=== PATIENT | male | born 1955 | race Caucasian/White ===

== ENCOUNTER 2019-02-03 20:32 | Emergency (ER) | payer OTHER ==
--- NOTE | 2019-02-03 21:07 | RAD ---
XR Chest 1 View Portable HISTORY: Chest pain COMPARISON: 08/09/2018 FINDINGS: Changes of median sternotomy, COPD and left-sided pacemaker device are again seen. Chronic parenchymal changes are again noted. The heart size is normal. The lungs are well expanded without focal areas of consolidation, pneumothorax or pleural effusions. IMPRESSION: No radiographic evidence of acute cardiopulmonary process.
[2019-02-03 21:13] LABS: #Eosinphils 0.2 thou/uL (0.0-0.7); #Lymphocytes 1.9 thou/uL (1.20-3.40); #Monocytes 0.7 thou/uL (0.11-0.59); #Neutrophils 10.8 thou/uL (1.40-6.50); %Basophils 0.3 % (0.0-1.0); %Eosinophils 1.1 % (0.0-10.0); %Lymphocytes 14.1 % (21.0-51.0); %Monocytes 5.3 % (0.0-10.0); %Neutrophils 79.1 % (42.0-75.0); Hemoglobin 12.8 g/dL (14.0-18.0); Mean Corpuscular HGB CONC 33.9 g/dL (32.0-36.0); Mean Corpuscular Hemoglobin 32.5 pg (27.0-31.0); Mean Platelet Volume 7.5 fL (7.4-10.4); Platelet Count 300 thou/uL (130-400); RBC Distribution Width 12.3 % (11.5-14.5); Red Blood Cell (RBC) Count 3.95 mill/uL (4.70-6.10); White Blood Cell (WBC) Count 13.6 thou/uL (4.8-10.8)
[2019-02-03 21:37] LABS: ALT (SGPT) 8 U/L (8-55); AST (SGOT) 12 U/L (5-34); Albumin 3.1 g/dL (3.4-4.8); Alkaline Phosphatase 88 U/L (40-110); Anion Gap 10 mmol/L (10-20); BUN (Urea Nitrogen) 6 mg/dL (8.4-25.7); Bilirubin, Total 0.3 mg/dL (0.2-1.2); Calc. Creatinine Clearance 0 mL/min (70-130); Calcium 7.7 mg/dL (7.8-10.44); Carbon Dioxide 23 mmol/L (23-31); Chloride 102 mmol/L (98-107); Estimated GFR-MDRD Greater than 90; Globulin 2.7 g/dL (2.4-3.5); Glucose 97 mg/dL (80-115); Potassium 4.1 mmol/L (3.5-5.1); Protein, Total 5.8 g/dL (5.8-8.1); Sodium 131 mmol/L (136-145)
[2019-02-04 00:40] LABS: Troponin I Less than 0.010 ng/mL (< 0.028)
== END 2019-02-04 06:32 | disposition short-term general hospital (02) ==
LOC: ERS 20:32
DX: R07.2 Precordial pain (principal); J43.9 Emphysema, unspecified; I11.0 Hypertensive heart disease with heart failure; I50.9 Heart failure, unspecified; I25.10 Atherosclerotic heart disease of native coronary artery without angina pectoris; F17.210 Nicotine dependence, cigarettes, uncomplicated; Z85.51 Personal history of malignant neoplasm of bladder; Z95.0 Presence of cardiac pacemaker; Z79.899 Other long term (current) drug therapy; Z79.82 Long term (current) use of aspirin
CPT/HCPCS: 36415; 71045; 80053; 84484; 85025; 93005

== ENCOUNTER 2020-01-24 19:12 | Inpatient (IN) | payer OTHER ==
[2020-01-24 20:00] LABS: #Basophils 0.1 thou/uL (0.0-0.2); #Eosinphils 0.1 thou/uL (0.0-0.7); #Lymphocytes 1.2 thou/uL (1.20-3.40); #Monocytes 0.9 thou/uL (0.11-0.59); #Neutrophils 7.9 thou/uL (1.40-6.50); %Basophils 0.6 % (0.0-1.0); %Eosinophils 1.2 % (0.0-10.0); %Lymphocytes 11.8 % (21.0-51.0); %Neutrophils 77.4 % (42.0-75.0); Hemoglobin 12.4 g/dL (14.0-18.0); Mean Corpuscular HGB CONC 31.7 g/dL (32.0-36.0); Mean Corpuscular Hemoglobin 26.7 pg (27.0-31.0); Mean Corpuscular Volume 84.2 fL (78.0-98.0); Mean Platelet Volume 7.9 fL (7.4-10.4); Platelet Count 272 thou/uL (130-400); RBC Distribution Width 16.8 % (11.5-14.5); Red Blood Cell (RBC) Count 4.67 mill/uL (4.70-6.10); White Blood Cell (WBC) Count 10.2 thou/uL (4.8-10.8)
[2020-01-24 20:21] LABS: ALT (SGPT) 15 U/L (8-55); AST (SGOT) 15 U/L (5-34); Albumin 3.3 g/dL (3.4-4.8); Alkaline Phosphatase 105 U/L (40-110); Anion Gap 11 mmol/L (10-20); BUN (Urea Nitrogen) 8 mg/dL (8.4-25.7); Bilirubin, Total 0.2 mg/dL (0.2-1.2); Calc. Creatinine Clearance 0 mL/min (70-130); Calcium 8.3 mg/dL (7.8-10.44); Carbon Dioxide 26 mmol/L (23-31); Chloride 100 mmol/L (98-107); Estimated GFR-MDRD Greater than 90; Globulin 3.5 g/dL (2.4-3.5); Glucose 86 mg/dL (80-115); Potassium 4.1 mmol/L (3.5-5.1); Protein, Total 6.8 g/dL (5.8-8.1); Sodium 133 mmol/L (136-145)
[2020-01-24] MEDS ORDERED: Acetaminophen 325 MG TAB PO PRN (20:33)
[2020-01-24] MEDS ORDERED: Nitroglycerin 0.4 MG TAB (25 Tab Bottle) SL PRN (20:33)
[2020-01-24 20:43] LABS: CKMB 4.6 ng/mL (0-6.6)
--- NOTE | 2020-01-24 21:02 | PDOC.BPN ---
- Brief Progress Note Encounter Date: 01/24/20 [id number] HP
[2020-01-24] MEDS ORDERED: Enoxaparin Sodium 60 MG/0.6 ML SYRINGE ONE (21:14)
[2020-01-24] MEDS ORDERED: Aspirin Chewable 81 MG TAB ONE (21:14)
--- NOTE | 2020-01-24 21:25 | RAD ---
CHEST ONE VIEW: Comparison: 09-29-2019 History: Pain, irregular heart beat FINDINGS: Stable sternotomy wires and left sided transvenous pacemaker. Stable cardiac silhouette. There is evidence of hyperinflation of the lung parenchyma with extensive scarring in the right upper lobe. This results in retraction of the major fissure and compensatory hyperinflation of the right m iddle lobe and lower lobe. There are stable parenchymal changes in the left lung apex and left upper lobe. There is a stable mass like opacity in the left midlung. Further evaluation with chest CT is re commended. IMPRESSION: Extensive emphysematous change and scarring as detailed above. Further evaluation with chest CT is re commended. POS: PPP
[2020-01-24 21:35] LABS: Troponin I 0.312 ng/mL (< 0.028)
[2020-01-24 23:54] LABS: Troponin I 0.873 ng/mL (< 0.028)
[2020-01-25] MEDS: Metoprolol Tartrate 25 MG TAB PO SCH ×2 (00:55→11:33)
[2020-01-25] MEDS ORDERED: Famotidine 20 MG TAB ONE ×2 (01:46→11:10)
[2020-01-25] MEDS: Famotidine 20 MG TAB PO SCH ×3 (01:47→20:42)
[2020-01-25] MEDS ORDERED: Diltiazem 125 MG/25 ML ONE (02:01)
[2020-01-25] MEDS ORDERED: Sodium Chloride 0.9% 250 ML IV SCH (02:15)
[2020-01-25 05:06] LABS: Cardiac Risk 3.2 (Less than 4.5)
--- NOTE | 2020-01-25 05:39 | HP ---
CHIEF COMPLAINT: Chest pain and palpitations. HISTORY OF PRESENT ILLNESS: Mr. Caro is a 64-year-old male with past medical history of coronary artery disease, coronary artery bypass graft surgery, cardiac stents, COPD, cigarette smoker, atrial fibrillation, cardiac pacemaker, among others, presents to the emergency room with chest pain and palpitations that started around 5:30 p.m. The patient measured his blood pressure and his heart rate. His heart rate was 175. He took one nitroglycerin and blood pressure went down, but heart rate stayed the same. The chest pain did not resolve with nitroglycerin, so he called EMS. The EMS gave the patient 15 mg of IV diltiazem and 1.5 L, which resolved his chest pain and brought his heart rate down. The patient has a history of atrial fibrillation since 2017. He has a cardiac pacemaker in 2017. He denies being on anticoagulants. He takes Plavix and aspirin. Workup in the emergency room, the patient's troponin 0.116. In the emergency room, the patient was given aspirin and one dose of Lovenox. The patient is being admitted to hospital for further management. PAST MEDICAL HISTORY: 1. COPD/emphysema. 2. Coronary artery disease. 3. Congestive heart failure. 4. Bladder cancer. PAST PSYCHIATRIC HISTORY: Anxiety/depression. PAST SURGICAL HISTORY: 1. Cardiac pacemaker. 2. Coronary artery bypass graft surgery. 3. Cardiac stents. SOCIAL HISTORY: The patient denies alcohol drinking. He smokes half pack a day. FAMILY HISTORY: Reviewed and noncontributory. HOME MEDICATIONS: Please see home medication reconciliation form for updated medications. ALLERGIES: ALLERGIC TO CODEINE. REVIEW OF SYSTEMS: Review of 14 systems is negative except what is mentioned in history of present illness. PHYSICAL EXAMINATION: GENERAL: The patient is awake, alert, in moderate distress. VITAL SIGNS: Blood pressure is 100/74, pulse is 91, respiratory rate is 24, oxygen saturation is 100% on room air, and temperature 97.9. HEAD AND NECK: Normocephalic, atraumatic. NECK: Supple. CHEST: Fair bilateral air entry. HEART: Distant heart sounds. ABDOMEN: Soft, nontender. Bowel sounds present. NEUROLOGIC: Awake, alert. No focal deficits. PSYCH: Unable to assess. EXTREMITIES: No clubbing, no cyanosis. GENITOURINARY: No suprapubic tenderness. No flank tenderness. LABORATORY DATA: Sodium 133, BUN is 8, creatinine 0.5, potassium 4.1. WBC 10.2, hemoglobin 12.4, and platelets 272. Chest x-ray is pending. ASSESSMENT: 1. Atrial fibrillation with rapid ventricular response. 2. Chest pain with detectable troponin. 3. Coronary artery disease. 4. Chronic obstructive pulmonary disease/emphysema. 5. History of cardiac stents. 6. History of coronary artery bypass graft surgery. 7. Cigarette smoker. PLAN: 1. Admit. 2. Telemetry monitoring. 3. Aspirin. 4. The patient was given Lovenox in the ED, will continue, to be reassessed in the a.m. Consult Cardiology in the a.m. for evaluation and further recommendations. 5. 2D echo. 6. Reconcile home medications. 7. DVT prophylaxis as appropriate. 8. Expected length of stay, at least 1 midnight if the patient is stable. Job ID: [id number]
[2020-01-25 08:57] LABS: SARS-CoV-2 MS2 Positive; SARS-CoV-2 N Gene Negative; SARS-CoV-2 S Gene Negative; SARS-CoV-2 by NAA Not Detected (NotDetected); SARS-CoV-2 orf1ab Negative
[2020-01-25] MEDS ORDERED: Enoxaparin Sodium 60 MG/0.6 ML SYRINGE SC SCH (09:00)
--- NOTE | 2020-01-25 09:11 | PDOC.HOSPP ---
- Subjective Encounter Date: 01/25/20 Encounter Time: 11:00 Subjective: Patient without further chest pain, SOB, or palpitations. - Objective Vital Signs & Weight: Vital Signs (12 hours) Temp Pulse Resp BP Pulse Ox 01/25/20 00:00 98.6 F 79 23 H 93/64 100 01/24/20 22:30 99 01/24/20 22:26 98.3 F 99 23 H 103/70 99 Weight Weight 118 lb 3.39 oz I&O: 01/24/20 01/25/20 01/26/20 06:59 06:59 06:59 Output Total 370 Balance -370 Result Diagrams: 01/24/20 19:53 01/24/20 19:53 Hospitalist ROS - Review of Systems Constitutional: denies: fever, chills Respiratory: denies: cough, shortness of breath Cardiovascular: denies: chest pain, palpitations Gastrointestinal: denies: nausea, vomiting, abdominal pain - Medication Medications: Active Medications Generic Name Dose Route Start Last Admin Trade Name Freq PRN Reason Stop Dose Admin Famotidine 20 mg 01/24/20 21:00 01/25/20 01:47 Famotidine 20 Mg Tab PO 20 mg BID NEELIMA Administration Metoprolol Tartrate 25 mg 01/24/20 21:00 01/25/20 00:55 Metoprolol Tartrate 25 Mg Tab PO Not Given BID NEELIMA - Exam General Appearance: NAD, awake alert ENT: moist mucosa Heart: no murmur, no gallops, no rubs, irregular Heart - other findings: no tachycardia Respiratory: CTAB, no wheezes, no rales, no ronchi Gastrointestinal: soft, non-tender, non-distended, normal bowel sounds Psychiatric: normal affect, normal behavior, A&O x 3 Hosp A/P (1) Atrial fibrillation with rapid ventricular response Code(s): I48.91 - UNSPECIFIED ATRIAL FIBRILLATION Status: Acute (2) NSTEMI (non-ST elevated myocardial infarction) Code(s): I21.4 - NON-ST ELEVATION (NSTEMI) MYOCARDIAL INFARCTION Status: Acute (3) CAD (coronary artery disease) Code(s): I25.10 - ATHSCL HEART DISEASE OF [place] CORONARY ARTERY W/O ANG PCTRS Status: Chronic (4) COPD (chronic obstructive pulmonary disease) Status: Chronic (5) Tobacco abuse Code(s): Z72.0 - TOBACCO USE Status: Chronic - Plan Troponin climbed overnight. Patient on Lovenox and Aspirin. Cardiology consulted. Metoprolol for rate control. Resume home medications including Plavix, Carvedilol.
[2020-01-25] MEDS ORDERED: Enoxaparin Sodium 100 MG/ML SYRINGE ONE (11:10)
[2020-01-25] MEDS ORDERED: Aspirin 325 MG TAB ONE (11:10)
[2020-01-25] MEDS ORDERED: Metoprolol Tartrate 25 MG TAB ONE (11:10)
[2020-01-25] MEDS: Aspirin 325 mg Enteric Coated Tablet PO SCH (11:33)
[2020-01-25] MEDS ORDERED: Communication Order-Pharmacy FS SCH (16:45)
[2020-01-25] MEDS: Carvedilol 6.25 MG TAB PO SCH (17:55)
[2020-01-25] MEDS: Atorvastatin Calcium 40 MG TAB PO SCH (20:43)
[2020-01-25] MEDS: Amiodarone 200 MG TAB PO SCH (20:43)
[2020-01-25] MEDS: traZODone HCl 50 MG TAB PO SCH (20:43)
--- NOTE | 2020-01-25 22:44 | CON ---
DATE OF CONSULTATION: HISTORY: Jc Caro is a 64-year-old white male, who underwent CABG x3 in 2006. He presented here in June 2016 with an inferoposterior STEMI. He previously had stents placed in the right coronary artery graft. He was taken emergently to the cardiac cath lab manager by Dr. Morrell. The PERSON to the LAD was patent, there was occluded graft to the obtuse marginal. The right coronary artery graft also occluded with fresh thrombus. The thrombus burden apparently was so large that the area could not be revascularized. His troponin went to 7.442. He did have problems with complete heart block. Initial ejection fraction was 30% to 35%. He was taken for a pacemaker placement with initial intent of placing a biventricular pacemaker and wearing a LifeVest if his ejection fraction continued to remain poor after 40 days to upgrade to a defibrillator. However, there was difficulty in placing the left ventricular lead and only a dual-chamber pacemaker was placed. He never returned to Dr. Morrell for followup since he gets his care [facility]. He is somewhat of a poor historian, thinks he may have had an echo at some point in time. He has never been told that he needed to upgrade to a defibrillator. He states he has not had any further evaluation performed on his heart since 2017. He apparently has had some episodes of atrial fibrillation, however, states he was hospitalized here with it. He was seen in the emergency room in August 2018 and in January 2019, was transferred to the [facility] from the ER both times; however, I cannot see any mention of atrial fibrillation. Yesterday, at approximately 5:30 p.m., he had onset of substernal chest pressure associated with shortness of breath. He took nitroglycerin and this did not relieve the discomfort. He states that when he took his blood pressure, it was 120/90; however, his heart rate was in the 170s. He called EMS and he was transferred here. EMS gave him Cardizem 15 mg, which brought down his heart rate and by the time he arrived here, his chest pressure resolved, total duration of pain approximately 1-1/2 hours. He has never been on anticoagulants in the past. He is on aspirin, Plavix, and stated that he has bladder cancer and had a biopsy performed and then resumed Plavix 3 weeks later, but had urinary obstruction due to development of a large clot in his bladder. He states he just resumed the Plavix approximately 1 week ago. PAST MEDICAL HISTORY: Coronary artery disease, history of myocardial infarction, hypertension, hypercholesterolemia. MEDICATIONS: 1. Lisinopril 5 daily. 2. Clopidogrel 75 mg daily. 3. Aspirin 81 daily. 4. Atorvastatin 80 daily. 5. Trazodone 100 mg daily. 6. Carvedilol 12.5 b.i.d. 7. Sertraline 100 daily. ALLERGIES: CODEINE WHICH CAUSES A RASH. SOCIAL HISTORY: He smokes one-half pack per day down from two packs per day. He does not drink. REVIEW OF SYSTEMS: A 10-point review of systems is otherwise unremarkable. PHYSICAL EXAMINATION: VITAL SIGNS: Blood pressure 110/68, pulse of 70. HEENT: PERRL. NECK: Supple. CHEST: Clear. CARDIAC: S1 and S2 normal without any S3, S4, or murmurs. Carotid upstrokes normal without bruits. ABDOMEN: Normal bowel sounds without tenderness or organomegaly. EXTREMITIES: Reveal no clubbing, cyanosis, or edema. NEUROLOGIC: Grossly intact. SKIN: Warm and dry. LABORATORY DATA: EKG reveals normal sinus rhythm when he arrived here with anterior infarction. He then at approximately 0156 went into atrial fibrillation with rate as low as 50s to 160. He started on a Cardizem drip and converted to sinus rhythm. The drip has since been discontinued. He continues to maintain sinus rhythm. Troponin I 0.873. Cholesterol 121, triglycerides 60, HDL 38, LDL 71. Sodium 133, potassium 4.1, chloride 100, carbon dioxide 26, BUN 8, creatinine 0.59. Urine drug screen is positive for benzodiazepine and cannabinoids. COVID negative. IMPRESSION: 1. [id number] myocardial infarction. When he arrived here, he had gone back to sinus rhythm and has had one other recurrence. He apparently has had atrial fibrillation in the past. He is not on any specific suppressive agent for that. He also is not on anticoagulation, but has had hematuria from his bladder cancer. 2. Paroxysmal atrial fibrillation. 3. Status post coronary artery bypass grafting x3 with both the obtuse marginal and the right coronary graft being occluded. 4. Left ventricular dysfunction in the past, however, not certain of his ejection fraction at the present time. 5. Hypertension. 6. Hypercholesterolemia with LDL of 71. 7. Smoker. 8. Bladder cancer with development of a clot with urinary obstruction and he resumed Plavix. 9. S/P dual chamber pacemaker, unable to place LV lead. RECOMMENDATIONS: The situation was discussed with the patient. Echocardiogram will be performed to reassess left ventricular function. I will start him on p.o. amiodarone loading. Also, consideration should be given to oral anticoagulation; however, he has had problems with bleeding with his bladder cancer. It was recommended he undergo cardiac catheterization. Risks of this were discussed including , myocardial infarction, dye reaction, vascular injury, CVA, transfusion, limb loss, renal loss, etc. Also risks of intervention with PTCA and stent placement were discussed including , myocardial infarction, emergent CABG, restenosis, stent thrombosis, vessel perforation, etc. With his history of bladder cancer and bleeding, I would recommend placing a bare-metal stent. Job ID: [id number] [email or web address]
[2020-01-26] MEDS: Carvedilol 6.25 MG TAB PO SCH (05:53)
[2020-01-26] MEDS: Amiodarone 200 MG TAB PO SCH ×2 (05:54→21:40)
[2020-01-26] MEDS ORDERED: Sodium Chloride 0.9% 1,000 ML IV SCH ×2 (06:00→08:16)
[2020-01-26] MEDS ORDERED: Heparin 10,000 UNITS/ 10 ML VIAL ONE (06:38)
[2020-01-26] MEDS ORDERED: Midazolam HCl 2 mg/2 ml Vial ONE (07:10)
[2020-01-26] MEDS ORDERED: Fentanyl 100 MCG/2 ML VIAL ONE (07:10)
[2020-01-26] MEDS ORDERED: Protamine Sulfate 50 MG/5 ML VIAL ONE (07:38)
--- NOTE | 2020-01-26 08:11 | PDOC.HOSPP ---
- Subjective Encounter Date: 01/26/20 Encounter Time: 09:30 Subjective: Patient back from his cath. No stent placed. Patient denies complaints. - Objective Vital Signs & Weight: Vital Signs (12 hours) Temp Pulse Resp BP BP Pulse Ox 01/26/20 05:53 106/60 01/26/20 04:45 98.1 F 77 16 106/60 97 Weight Weight 114 lb 8 oz I&O: 01/25/20 01/26/20 01/27/20 06:59 06:59 06:59 Intake Total 600 Output Total 370 Balance -370 600 Result Diagrams: 01/24/20 19:53 01/24/20 19:53 Hospitalist ROS - Review of Systems Constitutional: denies: fever, chills Respiratory: denies: cough, shortness of breath Cardiovascular: denies: chest pain, palpitations Gastrointestinal: denies: nausea, vomiting, abdominal pain - Medication Medications: Active Medications Generic Name Dose Route Start Last Admin Trade Name Freq PRN Reason Stop Dose Admin Amiodarone HCl 400 mg 01/25/20 21:00 01/26/20 05:54 Amiodarone 200 Mg Tab PO 400 mg BID NEELIMA Administration Aspirin 325 mg 01/25/20 09:00 01/25/20 11:33 Aspirin 325 Mg Enteric Coated Tablet PO 325 mg DAILY NEELIMA Administration Atorvastatin Calcium 80 mg 01/25/20 21:00 01/25/20 20:43 Atorvastatin Calcium 40 Mg Tab PO 80 mg HS NEELIMA Administration Carvedilol 12.5 mg 01/25/20 17:00 01/26/20 05:53 Carvedilol 6.25 Mg Tab PO 12.5 mg BID-WM NEELIMA Administration Famotidine 20 mg 01/24/20 21:00 01/25/20 20:42 Famotidine 20 Mg Tab PO 20 mg BID NEELIMA Administration Sodium Chloride 1,000 mls @ 100 mls/hr 01/26/20 06:00 01/26/20 05:54 Normal Saline 0.9% IV 1,000 mls .Q10H NEELIMA Administration Trazodone HCl 50 mg 01/25/20 21:00 01/25/20 20:43 Trazodone Hcl 50 Mg Tab PO 50 mg HS NEELIMA Administration - Exam General Appearance: NAD, awake alert ENT: moist mucosa Heart: RRR, no murmur, no gallops, no rubs Respiratory: CTAB, no wheezes, no rales, no ronchi Gastrointestinal: soft, non-tender, non-distended, normal bowel sounds Psychiatric: normal affect, normal behavior, A&O x 3 Hosp A/P (1) Atrial fibrillation with rapid ventricular response Code(s): I48.91 - UNSPECIFIED ATRIAL FIBRILLATION Status: Acute (2) NSTEMI (non-ST elevated myocardial infarction) Code(s): I21.4 - NON-ST ELEVATION (NSTEMI) MYOCARDIAL INFARCTION Status: Acute (3) CAD (coronary artery disease) Code(s): I25.10 - ATHSCL HEART DISEASE OF [place] CORONARY ARTERY W/O ANG PCTRS Status: Chronic (4) COPD (chronic obstructive pulmonary disease) Status: Chronic (5) Tobacco abuse Code(s): Z72.0 - TOBACCO USE Status: Chronic - Plan Patient on Lovenox and Aspirin. Cardiology consulted, Dr. Renee took to cath this AM with no stents placed. Metoprolol for rate control. Starting Amiodarone load orally. Resume home medications including Plavix, Carvedilol. Dr. Garcia considering changing out pacer for biventricular/defibrillator per patient.
[2020-01-26] MEDS ORDERED: Nitroglycerin 0.4 MG TAB (25 Tab Bottle) SL PRN (08:15)
[2020-01-26] MEDS ORDERED: Sodium Chloride 0.9% 200 ML IV PRN (08:15)
[2020-01-26] MEDS ORDERED: Iopamidol 370 76% 50 ML VIAL FS ONE (08:49)
[2020-01-26] MEDS ORDERED: Iopamidol 370 76% 100 ML VIAL ONE (08:49)
[2020-01-26] MEDS: Furosemide 20 MG TAB PO SCH (10:25)
[2020-01-26] MEDS: Famotidine 20 MG TAB PO SCH ×2 (10:25→21:40)
[2020-01-26] MEDS: Clopidogrel Bisulfate 75 MG TAB PO SCH (14:17)
[2020-01-26] MEDS: Aspirin 325 mg Enteric Coated Tablet PO SCH (14:17)
[2020-01-26] MEDS ORDERED: Carvedilol 6.25 MG TAB PO SCH (17:00)
[2020-01-26] MEDS: traZODone HCl 50 MG TAB PO SCH (21:40)
[2020-01-26] MEDS: Atorvastatin Calcium 40 MG TAB PO SCH (21:40)
[2020-01-27 05:21] LABS: Anion Gap 12 mmol/L (10-20); BUN (Urea Nitrogen) 7 mg/dL (8.4-25.7); Calc. Creatinine Clearance 92 mL/min (70-130); Calcium 8.4 mg/dL (7.8-10.44); Carbon Dioxide 25 mmol/L (23-31); Chloride 101 mmol/L (98-107); Estimated GFR-MDRD Greater than 90; Glucose 87 mg/dL (80-115); Potassium 3.6 mmol/L (3.5-5.1); Sodium 134 mmol/L (136-145)
--- NOTE | 2020-01-27 07:20 | CON ---
DATE OF CONSULTATION: 01/26/2020 HISTORY OF PRESENT ILLNESS: I am seeing Mr. Caro at our [facility] telemetry floor for an Electrophysiology consultation. His problems are; 1. Paroxysmal atrial fibrillation with rapid ventricular rate, currently on amiodarone taper. 2. Chronic systolic congestive heart failure with ischemic cardiomyopathy: a. History of coronary artery bypass grafting surgery in 2006. b. Inferoposterior ST-elevation OK in June 2016 with subsequent RCA stenting. c. Initial LVEF 30% to 35% [facility]. d. Now left heart catheterization from 01/26/2020 shows three-vessel [place] coronary artery disease with 1 out of 3 bypass grafts patent (PERSON to LAD). The LVEF is 10% to 15%. 3. History of AV block prompting a dual-chamber pacemaker implant post OK with a [employer] device. 4. Hypertension. ALLERGIES: CODEINE CAUSING RASH. MEDICATIONS: At home included; 1. Aspirin. 2. Lipitor. 3. Coreg. 4. Nitrostat. SUBJECTIVE: Mr. Caro is admitted with symptoms of severe palpitation and dyspnea. He was noted to be in atrial fibrillation and eventually underwent left heart catheterization by Dr. Renee. Coronary artery status as above. No intervention was necessary. He does not pass out. No stroke-like symptoms noted. He does have dyspnea with moderate exertion like walking 25 feet. He has no fever, chills, or cough. He did have some bladder issues, which is now improving. He has chronic COPD, possibly related to prior smoking, but currently is not worse than usual. REVIEW OF SYSTEMS: Rest of 12-point of system otherwise unremarkable. PAST HISTORY: As above, he has history of COPD with emphysema, coronary artery disease, congestive heart failure due to ischemic cardiomyopathy, prior myocardial infarction, bradycardia, dual-chamber pacemaker implantation by me in 2016. Also has history of bladder cancer status post chemotherapy in April and May, still under surveillance by Urology. He has prior history of stent placements and coronary artery bypass grafting surgery as above. SOCIAL HISTORY: Denies EtOH abuse. Smokes half a pack a day. FAMILY HISTORY: Not contributory. OBJECTIVE DATA: VITAL SIGNS: Blood pressure is 106/60, heart rate 77, respiratory rate is 16, temperature 98.1 degrees Fahrenheit. GENERAL: Reveals alert and oriented man, in no apparent distress. NECK: Supple. Jugular veins not distended. CHEST: Coarse without crackles. CARDIAC: Heart sounds are regular to rate and rhythm. No murmur or gallop. ABDOMEN: Benign. Bowel sounds positive. EXTREMITIES: Lower extremities without edema, clubbing, or cyanosis. Pulses are adequate. NEUROLOGIC: The patient is nonfocal. MUSCULOSKELETAL: Without joint swelling or deformities. SKIN: Without rash. Left precordial pacemaker insertion site is well healed. DATABASE: Reviewed EKGs, initially revealed sinus rhythm with frequent PACs on January 24, 2020. Subsequent EKGs also showed the same atrial fibrillation documented on telemetry strips with rapid rates with sabianism of sinus rhythm shortly after. I reviewed the pacemaker interrogation, reveals a [employer] dual-chamber pacemaker, battery longevity at 9.8 years. Lead parameters are adequate. Sensing 4.4 and 7.5 mV respectively. The patient is currently 5% ventricularly paced only. 59 mode switch episodes with overall low atrial fibrillation burden are seen. The episodes up to 124 minutes noted on January 23. Prior to that, longest episode was 41 minutes on January 07. Ventricular rates are rapid during atrial fibrillation in the 150s to 160s. LABORATORY DATA: Reviewed. White cell count 10.2, hemoglobin 12.4, platelet count is 272. Sodium 133, potassium 4.1, BUN is 8, creatinine 0.59. Troponin-I 0.116, 0.312, and 0.873 consecutively. Chest x-ray from 01/24/2020, shows emphysema, masslike opacity in the left mid lung, dual-chamber pacemaker in place. ASSESSMENT AND PLAN: 1. Mr. Caro is a 64-year-old man with prior history of congestive heart failure and ischemic cardiomyopathy, severely reduced LVEF on echo in June 2016 post OK in the 30% to 35% range. Now re-presented with paroxysmal atrial fibrillation with rapid rates with associated chest tightness sensation and dyspnea. The left heart catheterization demonstrates advanced but stable coronary artery disease, on medical management. Dr. Renee had initiated the amiodarone for suppression of atrial arrhythmias, were likely main cause of his symptoms. On the other hand, he has severely reduced LVEF, which seems to be persisting over the years, gives him risk for future ventricular arrhythmias. Consideration for upgrading him for ICD could be made. I discussed the rationale, risks, benefits of prophylactic ICD implant. He understands the concept of sudden cardiac prevention with the ICD device. The risks and benefits of procedure discussed including chance of pneumothorax, tamponade, lead dislodgement, infections, device malfunctions, recalls. We also discussed the likely superfluous RV pacing lead, which left in place. At this point, he does not prefer extraction. 2. In the past, consideration was given for Bi-V pacing. Post OK his AV block persisted, but mostly resolved, he only has 5% RV pacing, likely does not warrant a Bi-V pacemaker at this time. 3. Paroxysmal atrial fibrillation on amiodarone. Hopefully, we can reduce medication to lower levels, hence his baseline pulmonary disease. 4. CHADS-VASc score of 4 with cardiovascular disease, congestive heart failure, hypertension, his age, but very short episode of atrial fibrillation. Has recent history of bladder cancer, anticoagulation is somewhat difficult proposition. Should longer atrial fibrillation episodes be seen, consideration for starting anticoagulants should be given. On the other hand, Watchman device placement could be also a consideration once he tolerates anticoagulant, though he could be considered for pulmonary venous isolation procedure as well. 5. We will make arrangements for the dual-chamber ICD upgrade. Thank you again for letting me participate in the care of this patient. Job ID: [id number] [id number]
[2020-01-27] MEDS ORDERED: Nitroglycerin 0.4 MG TAB (25 Tab Bottle) SL PRN (07:40)
[2020-01-27] MEDS ORDERED: Enoxaparin Sodium 60 MG/0.6 ML SYRINGE SC SCH (09:00)
[2020-01-27] MEDS ORDERED: Enoxaparin Sodium 80 MG/0.8 ML SYRINGE SC SCH (09:00)
[2020-01-27] MEDS: Furosemide 20 MG TAB PO SCH (09:05)
[2020-01-27] MEDS: Clopidogrel Bisulfate 75 MG TAB PO SCH ×2 (09:05→11:52)
[2020-01-27] MEDS: Famotidine 20 MG TAB PO SCH ×2 (09:06→22:39)
[2020-01-27] MEDS: Amiodarone 200 MG TAB PO SCH ×2 (09:07→22:25)
[2020-01-27] MEDS: Carvedilol 3.125 MG TAB PO SCH ×2 (09:13→22:25)
[2020-01-27] MEDS: Aspirin Chewable 81 MG TAB PO SCH (09:15)
[2020-01-27] MEDS ORDERED: Iopamidol 370 76% 50 ML VIAL FS ONE (14:29)
[2020-01-27] MEDS ORDERED: CEFAZOLIN 1 GM VIAL ONE (15:42)
[2020-01-27] MEDS ORDERED: Gentamicin 80 MG/2 ML VIAL ONE (15:42)
[2020-01-27] MEDS ORDERED: Ondansetron PF 4 MG/2 ML Vial ONE (15:56)
[2020-01-27] MEDS ORDERED: Lidocaine 1% (PF) 30 ML VIAL ONE (16:07)
[2020-01-27] MEDS ORDERED: Fentanyl 100 MCG/2 ML VIAL ONE ×2 (16:27→16:54)
[2020-01-27] MEDS ORDERED: Midazolam HCl 2 mg/2 ml Vial ONE ×2 (16:27→16:54)
--- NOTE | 2020-01-27 16:40 | PDOC.HOSPP ---
- Subjective Encounter Date: 01/27/20 Encounter Time: 10:00 Subjective: Up in bed no complaints. Waiting to go for his AICD placement. - Objective Vital Signs & Weight: Vital Signs (12 hours) Temp Pulse Pulse Pulse Resp BP BP 01/27/20 13:31 01/27/20 13:14 68 73 90/59 L 99/64 01/27/20 12:00 98.0 F 72 17 01/27/20 08:00 98.1 F 74 18 BP Pulse Ox 01/27/20 13:31 98 01/27/20 13:14 01/27/20 12:00 102/58 L 97 01/27/20 08:00 95/52 L 98 Weight Admit Weight 118 lb 3.39 oz Weight 116 lb 4.8 oz I&O: 01/26/20 01/27/20 01/28/20 06:59 06:59 06:59 Intake Total 600 480 Output Total 250 Balance 600 230 Result Diagrams: 01/24/20 19:53 01/27/20 04:41 Hospitalist ROS - Review of Systems Cardiovascular: denies: chest pain, palpitations, orthopnea, paroxysmal noc. dyspnea, edema, light headedness, other Gastrointestinal: denies: nausea, vomiting, abdominal pain, diarrhea, constipation, melena, hematochezia, other Genitourinary: denies: dysuria, frequency, incontinence, hematuria, retention, other - Medication Medications: Active Medications Generic Name Dose Route Start Last Admin Trade Name Freq PRN Reason Stop Dose Admin Amiodarone HCl 400 mg 01/25/20 21:00 01/27/20 09:07 Amiodarone 200 Mg Tab PO 400 mg BID NEELIMA Administration Aspirin 81 mg 01/27/20 09:00 01/27/20 09:15 Aspirin Chewable 81 Mg Tab PO 81 mg DAILY NEELIMA Administration Carvedilol 3.125 mg 01/27/20 09:00 01/27/20 09:13 Carvedilol 3.125 Mg Tab PO 3.125 mg BID NEELIMA Administration Clopidogrel Bisulfate 75 mg 01/26/20 09:00 01/27/20 11:52 Clopidogrel Bisulfate 75 Mg Tab PO 75 mg DAILY [facility] Administration Enoxaparin Sodium 50 mg 01/27/20 09:00 01/27/20 09:08 Enoxaparin Sodium 60 Mg/0.6 Ml Syringe SC Not Given 0900,2100 NEELIMA Famotidine 20 mg 01/24/20 21:00 01/27/20 09:06 Famotidine 20 Mg Tab PO 20 mg BID NE[facility]IMA Administration Furosemide 20 mg 01/26/20 09:00 01/27/20 09:05 Furosemide 20 Mg Tab PO Not Given DAILY NEELIMA Sacubitril/Valsartan 1 tab 01/26/20 21:00 01/27/20 09:07 Sacubitril 24mg/Valsartan 26mg Tab PO 1 tab BID [facility] Administration Sertraline HCl 100 mg 01/26/20 09:00 01/27/20 09:06 Sertraline Hcl 100 Mg Tab PO 100 mg DAILY [facility] Administration Sodium Chloride 10 ml 01/26/20 21:00 01/27/20 09:07 Flush - Normal Saline 10 Ml Syringe IVF 10 ml Q12HR NEELIMA Administration Trazodone HCl 50 mg 01/25/20 21:00 01/26/20 21:40 Trazodone Hcl 50 Mg Tab PO 50 mg HS NEELIMA Administration - Exam Neck: negative: supple, symmetric, no JVD, no thyromegaly, no lymphadenopathy, no carotid bruit, JVD Heart: negative: RRR, no murmur, no gallops, no rubs, normal peripheral pulses, irregular, diminshed peripheral pulses, murmur present, II/IV, III/IV Respiratory: negative: CTAB, no wheezes, no rales, no ronchi, normal chest expansion, no tachypnea, normal percussion, rales, rhonchi, tachypneic, wheezes Gastrointestinal: negative: soft, non-tender, non-distended, normal bowel sounds, no palpable masses, no hepatomegaly, no splenomegaly, no bruit, no guarding, no rigidity, tender to palpation, distended, diminished bowl sounds, voluntary guarding Hosp A/P (1) Atrial fibrillation with rapid ventricular response Code(s): I48.91 - UNSPECIFIED ATRIAL FIBRILLATION Status: Acute (2) NSTEMI (non-ST elevated myocardial infarction) Code(s): I21.4 - NON-ST ELEVATION (NSTEMI) MYOCARDIAL INFARCTION Status: Acute (3) CAD (coronary artery disease) Code(s): I25.10 - ATHSCL HEART DISEASE OF [place] CORONARY ARTERY W/O ANG PCTRS Status: Chronic (4) Tobacco abuse Code(s): Z72.0 - TOBACCO USE Status: Chronic (5) Hyponatremia Code(s): E87.1 - HYPO-OSMOLALITY AND HYPONATREMIA Status: Acute - Plan Patient underwent cardiac cath no intervention. Patient will undergo a biventricular/defibrillator by EP. We will start patient back on Plavix and carvedilol. Patient has had bladder cancer. He is currently not on any anticoagulation. Will resume his aspirin and Plavix. Patient is being loaded with amiodarone. Will continue statin
[2020-01-27] MEDS ORDERED: Phenylephrine 10 MG/ML VIAL ONE (16:54)
[2020-01-27] MEDS ORDERED: Ketamine 50 MG/ML (10ML VIAL) ONE (16:54)
[2020-01-27] MEDS ORDERED: Propofol 500 MG/50 ML VIAL ONE (16:54)
--- NOTE | 2020-01-27 21:48 | OP ---
DATE OF PROCEDURE: 01/27/2020 This is an attempted ICD upgrade/left subclavian venogram report. Douglas Renee MD. REASON FOR PROCEDURE: Mr. Caro is a 64-year-old man with history of CHF, ischemic cardiomyopathy, presenting with severe reduced LVEF, he comes in for upgrading his pre-exsisting dual-chamber pacemaker to ICD. In preparation for the procedure, a left subclavian venogram was performed. 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 The occlusion is at the left subclavian SVC junction. Hence the ICD upgrade is canceled. PLAN: To proceed with the lead extraction as an outpatient and ICD implant. Job ID: [id number]
[2020-01-27] MEDS: traZODone HCl 50 MG TAB PO SCH (22:25)
[2020-01-27] MEDS: Atorvastatin Calcium 40 MG TAB PO SCH (22:39)
[2020-01-28 04:26] LABS: #Basophils 0.1 thou/uL (0.0-0.2); #Eosinphils 0.1 thou/uL (0.0-0.7); #Lymphocytes 1.7 thou/uL (1.20-3.40); %Basophils 0.6 % (0.0-1.0); %Eosinophils 1.3 % (0.0-10.0); %Lymphocytes 17.3 % (21.0-51.0); %Monocytes 10.4 % (0.0-10.0); %Neutrophils 70.3 % (42.0-75.0); Hemoglobin 12.6 g/dL (14.0-18.0); Mean Corpuscular HGB CONC 31.7 g/dL (32.0-36.0); Mean Corpuscular Hemoglobin 26.4 pg (27.0-31.0); Mean Corpuscular Volume 83.1 fL (78.0-98.0); Mean Platelet Volume 8.5 fL (7.4-10.4); Platelet Count 309 thou/uL (130-400); RBC Distribution Width 16.5 % (11.5-14.5); Red Blood Cell (RBC) Count 4.79 mill/uL (4.70-6.10); White Blood Cell (WBC) Count 9.9 thou/uL (4.8-10.8)
[2020-01-28 04:45] LABS: Anion Gap 11 mmol/L (10-20); BUN (Urea Nitrogen) 12 mg/dL (8.4-25.7); Calc. Creatinine Clearance 92 mL/min (70-130); Calcium 8.7 mg/dL (7.8-10.44); Carbon Dioxide 25 mmol/L (23-31); Chloride 100 mmol/L (98-107); Estimated GFR-MDRD Greater than 90; Glucose 82 mg/dL (80-115); Potassium 4.1 mmol/L (3.5-5.1); Sodium 132 mmol/L (136-145)
[2020-01-28] MEDS: Aspirin Chewable 81 MG TAB PO SCH (09:05)
[2020-01-28] MEDS: Clopidogrel Bisulfate 75 MG TAB PO SCH (09:06)
[2020-01-28] MEDS: Famotidine 20 MG TAB PO SCH ×2 (09:06→21:11)
[2020-01-28] MEDS: Carvedilol 3.125 MG TAB PO SCH ×2 (09:10→21:11)
[2020-01-28] MEDS: Furosemide 20 MG TAB PO SCH (09:10)
[2020-01-28] MEDS: Amiodarone 200 MG TAB PO SCH ×2 (10:53→21:10)
[2020-01-28 13:21] VITALS: BMI 16.4
--- NOTE | 2020-01-28 14:57 | PDOC.EP ---
- Subjective Date: 01/27/20 Time: 18:00 Interval History: Went for upgrade to ICD but could not proceed due to SVC occlusion. No new events otherwise. - Review of Systems Respiratory: reports: shortness of breath. denies: cough, dry, wheezing Cardiology: denies: chest pain, edema, heart racing, palpitations Gastrointestinal: denies: abdominal pain, constipation, nausea, vomitting - Objective Allergies/Adverse Reactions: Allergies Allergy/AdvReac Type Severity Reaction Status Date / Time codeine Allergy Mild Rash Verified 01/24/20 22:08 Current Medications Acetaminophen (Acetaminophen 325 Mg Tab) 650 mg PO Q4H PRN PRN Reason: Headache/Fever/Mild Pain (1-3) Amiodarone HCl (Amiodarone 200 Mg Tab) 400 mg PO BID [facility] Last Admin: 01/28/20 10:53 Dose: 400 mg Documented by: Aspirin (Aspirin Chewable 81 Mg Tab) 81 mg PO DAILY [facility] Last Admin: 01/28/20 09:05 Dose: 81 mg Documented by: Atorvastatin Calcium (Atorvastatin Calcium 40 Mg Tab) 40 mg PO HS [facility] Last Admin: 01/27/20 22:39 Dose: 40 mg Documented by: Carvedilol (Carvedilol 3.125 Mg Tab) 3.125 mg PO BID [facility] Last Admin: 01/28/20 09:10 Dose: 3.125 mg Documented by: Clopidogrel Bisulfate (Clopidogrel Bisulfate 75 Mg Tab) 75 mg PO DAILY [facility] Last Admin: 01/28/20 09:06 Dose: 75 mg Documented by: Famotidine (Famotidine 20 Mg Tab) 20 mg PO BID [facility] Last Admin: 01/28/20 09:06 Dose: 20 mg Documented by: Furosemide (Furosemide 20 Mg Tab) 20 mg PO DAILY [facility] Last Admin: 01/28/20 09:10 Dose: 20 mg Documented by: Nitroglycerin (Nitroglycerin 0.4 Mg Tab (25 Tab Bottle)) 0.4 mg SL Q5MIN PRN PRN Reason: Chest Pain Sacubitril/Valsartan (Sacubitril 24mg/Valsartan 26mg Tab) 1 tab PO BID [facility] Last Admin: 01/28/20 09:05 Dose: 1 tab Documented by: Sertraline HCl (Sertraline Hcl 100 Mg Tab) 100 mg PO DAILY [facility] Last Admin: 01/28/20 09:06 Dose: 100 mg Documented by: Sodium Chloride (Flush - Normal Saline 10 Ml Syringe) 10 ml IVF Q12HR [facility] Last Admin: 01/28/20 09:13 Dose: 10 ml Documented by: Sodium Chloride (Flush - Normal Saline 10 Ml Syringe) 10 ml IVF PRN PRN PRN Reason: Saline Flush Trazodone HCl (Trazodone Hcl 50 Mg Tab) 50 mg PO HS [facility] Last Admin: 01/27/20 22:25 Dose: Not Given Documented by: Vital Signs & Weight: Vital Signs Temp Pulse Pulse Pulse Resp BP BP 01/28/20 12:00 98.4 F 67 16 01/28/20 10:53 01/28/20 10:38 68 71 109/62 100/55 L 01/28/20 08:40 01/28/20 08:00 01/28/20 07:36 98.2 F 68 16 01/28/20 03:31 98.5 F 68 16 BP BP BP Pulse Ox 01/28/20 12:00 112/58 L 01/28/20 10:53 109/62 01/28/20 10:38 01/28/20 08:40 95 01/28/20 08:00 98 01/28/20 07:36 107/64 95 01/28/20 03:31 94/53 L 98 Admit Weight 118 lb 3.39 oz Weight 116 lb 4.8 oz I/O: I/O 01/27/20 01/28/20 01/29/20 06:59 06:59 06:59 Intake Total 480 Output Total 250 Balance 230 - Physical Exam General: alert & oriented x3, appears well, no apparent distress HEENT: mucus membranes moist, normocephaly, EOMI Neck: supple neck, midline trachea, no lymphadenopathy Cardiology: regular rate and rhythm, no murmur, PMI nondisplaced Lungs: clear to auscultation, no wheeze, rales, rhonchi, decreased breath sounds Neurology: cranial nerve 2-12 intact, grossly intact, no lateralizing findings - Labs Result Diagrams: 01/28/20 04:02 01/28/20 04:02 - EKG Interpretation EKG Method: Telemetry EKG shows: Sinus rhythm - Device Device: dual, pacemaker - Assessment/Plan Assessment/Plan: 1. Paroxysmal atrial fibrillation with rapid ventricular rate, currently on amiodarone taper. 2. Chronic systolic congestive heart failure with ischemic cardiomyopathy: a. History of coronary artery bypass grafting surgery in 2006. b. Inferoposterior ST-elevation MT in June 2016 with subsequent RCA stenting. c. Initial LVEF 30% to 35% [facility]. d. Now left heart catheterization from 01/26/2020 shows three-vessel [place] coronary artery disease with 1 out of 3 bypass grafts patent (PERSON to LAD). The LVEF is 10% to 15%. 3. History of AV block prompting a dual-chamber pacemaker implant post MT with a [employer] DR device. 4. Hypertension. Unable to proceed with upgrade to ICD due to SVC occlusion. Recommend lifevest and DC whenever medically feasible. Can arrange laser lead extraction and upgrade as outpatient. Continue amiodarione taper. Discussed with Dr Renee.
--- NOTE | 2020-01-28 15:01 | PDOC.EP ---
- Subjective Date: 01/28/20 Time: 08:00 Interval History: no new events overnight. Feels fair - Review of Systems Respiratory: reports: shortness of breath. denies: cough, dry, hemoptysis, wheezing Cardiology: denies: chest pain, heart racing, light headedness, palpitations Gastrointestinal: denies: abdominal pain, constipation, nausea, vomitting - Objective Allergies/Adverse Reactions: Allergies Allergy/AdvReac Type Severity Reaction Status Date / Time codeine Allergy Mild Rash Verified 01/24/20 22:08 Current Medications Acetaminophen (Acetaminophen 325 Mg Tab) 650 mg PO Q4H PRN PRN Reason: Headache/Fever/Mild Pain (1-3) Amiodarone HCl (Amiodarone 200 Mg Tab) 400 mg PO BID [facility] Last Admin: 01/28/20 10:53 Dose: 400 mg Documented by: Aspirin (Aspirin Chewable 81 Mg Tab) 81 mg PO DAILY [facility] Last Admin: 01/28/20 09:05 Dose: 81 mg Documented by: Atorvastatin Calcium (Atorvastatin Calcium 40 Mg Tab) 40 mg PO HS [facility] Last Admin: 01/27/20 22:39 Dose: 40 mg Documented by: Carvedilol (Carvedilol 3.125 Mg Tab) 3.125 mg PO BID [facility] Last Admin: 01/28/20 09:10 Dose: 3.125 mg Documented by: Clopidogrel Bisulfate (Clopidogrel Bisulfate 75 Mg Tab) 75 mg PO DAILY [facility] Last Admin: 01/28/20 09:06 Dose: 75 mg Documented by: Famotidine (Famotidine 20 Mg Tab) 20 mg PO BID [facility] Last Admin: 01/28/20 09:06 Dose: 20 mg Documented by: Furosemide (Furosemide 20 Mg Tab) 20 mg PO DAILY [facility] Last Admin: 01/28/20 09:10 Dose: 20 mg Documented by: Nitroglycerin (Nitroglycerin 0.4 Mg Tab (25 Tab Bottle)) 0.4 mg SL Q5MIN PRN PRN Reason: Chest Pain Sacubitril/Valsartan (Sacubitril 24mg/Valsartan 26mg Tab) 1 tab PO BID [facility] Last Admin: 01/28/20 09:05 Dose: 1 tab Documented by: Sertraline HCl (Sertraline Hcl 100 Mg Tab) 100 mg PO DAILY [facility] Last Admin: 01/28/20 09:06 Dose: 100 mg Documented by: Sodium Chloride (Flush - Normal Saline 10 Ml Syringe) 10 ml IVF Q12HR [facility] Last Admin: 01/28/20 09:13 Dose: 10 ml Documented by: Sodium Chloride (Flush - Normal Saline 10 Ml Syringe) 10 ml IVF PRN PRN PRN Reason: Saline Flush Trazodone HCl (Trazodone Hcl 50 Mg Tab) 50 mg PO HS [facility] Last Admin: 01/27/20 22:25 Dose: Not Given Documented by: Vital Signs & Weight: Vital Signs Temp Pulse Pulse Pulse Resp BP BP 01/28/20 12:00 98.4 F 67 16 01/28/20 10:53 01/28/20 10:38 68 71 109/62 100/55 L 01/28/20 08:40 01/28/20 08:00 01/28/20 07:36 98.2 F 68 16 01/28/20 03:31 98.5 F 68 16 BP BP BP Pulse Ox 01/28/20 12:00 112/58 L 01/28/20 10:53 109/62 01/28/20 10:38 01/28/20 08:40 95 01/28/20 08:00 98 01/28/20 07:36 107/64 95 01/28/20 03:31 94/53 L 98 Admit Weight 118 lb 3.39 oz Weight 116 lb 4.8 oz I/O: I/O 01/27/20 01/28/20 01/29/20 06:59 06:59 06:59 Intake Total 480 Output Total 250 Balance 230 - Quality Measures Condition: Atrial Fibrillation/Flutter (hx or current) - Physical Exam General: alert & oriented x3, appears well, no apparent distress, speech clear, affect appropriate HEENT: mucus membranes moist, normocephaly Neck: supple neck, midline trachea, no JVD/HJR, no masses, no bruit, no lymphadenopathy, no thromegaly Cardiology: regular rate and rhythm, no murmur, regular rate, regular rhythm, PMI nondisplaced Lungs: clear to auscultation, normal breath sounds, no wheeze, rales, rhonchi Neurology: cranial nerve 2-12 intact, grossly intact, no lateralizing findings - Chadsvasc Risk factors Congestive heart failure: 1 Age 65-74: 1 Risk Score: 2 - Labs Result Diagrams: 01/28/20 04:02 01/28/20 04:02 - EKG Interpretation EKG Method: Telemetry - Assessment/Plan Assessment/Plan: 1. Paroxysmal atrial fibrillation with rapid ventricular rate, currently on amiodarone taper. a. risk for bleeding with bladder cancer. no OAC unless persisting AF seen. consider watchman in future if able to tolerate OAC short term 2. Chronic systolic congestive heart failure with ischemic cardiomyopathy: a. History of coronary artery bypass grafting surgery in 2006. b. Inferoposterior ST-elevation [place] in June 2016 with subsequent RCA stenting. c. Initial LVEF 30% to 35% [facility] [place] [facility]. d. Now left heart catheterization from 01/26/2020 shows three-vessel [place] coronary artery disease with 1 out of 3 bypass grafts patent (PERSON to LAD). The LVEF is 10% to 15%. 3. History of AV block prompting a dual-chamber pacemaker implant post [place] with a [employer] DR device. 4. Hypertension. Unable to proceed with upgrade to ICD due to SVC occlusion. Recommend lifevest and DC whenever medically feasible. Can arrange laser lead extraction and upgrade as outpatient. OK For DC by EP.
--- NOTE | 2020-01-28 15:44 | PDOC.HOSPP ---
- Subjective Encounter Date: 01/28/20 Encounter Time: 10:30 Subjective: Patient up in bed denies any complaints - Objective Vital Signs & Weight: Vital Signs (12 hours) Temp Pulse Pulse Pulse Resp BP BP 01/28/20 12:00 98.4 F 67 16 01/28/20 10:53 01/28/20 10:38 68 71 109/62 100/55 L 01/28/20 08:40 01/28/20 08:00 01/28/20 07:36 98.2 F 68 16 BP BP Pulse Ox 01/28/20 12:00 112/58 L 01/28/20 10:53 109/62 01/28/20 10:38 01/28/20 08:40 95 01/28/20 08:00 98 01/28/20 07:36 107/64 95 Weight Admit Weight 118 lb 3.39 oz Weight 116 lb 4.8 oz I&O: 01/27/20 01/28/20 01/29/20 06:59 06:59 06:59 Intake Total 480 Output Total 250 Balance 230 Result Diagrams: 01/28/20 04:02 01/28/20 04:02 Hospitalist ROS - Review of Systems Cardiovascular: denies: chest pain, palpitations, orthopnea, paroxysmal noc. dyspnea, edema, light headedness, other Gastrointestinal: denies: nausea, vomiting, abdominal pain, diarrhea, constipation, melena, hematochezia, other Genitourinary: denies: dysuria, frequency, incontinence, hematuria, retention, other - Medication Medications: Active Medications Generic Name Dose Route Start Last Admin Trade Name Freq PRN Reason Stop Dose Admin Amiodarone HCl 400 mg 01/25/20 21:00 01/28/20 10:53 Amiodarone 200 Mg Tab PO 400 mg BID [facility]IMA Administration Aspirin 81 mg 01/27/20 09:00 01/28/20 09:05 Aspirin Chewable 81 Mg Tab PO 81 mg DAILY [facility]IMA Administration Atorvastatin Calcium 40 mg 01/27/20 21:00 01/27/20 22:39 Atorvastatin Calcium 40 Mg Tab PO 40 mg HS [facility]IMA Administration Carvedilol 3.125 mg 01/27/20 09:00 01/28/20 09:10 Carvedilol 3.125 Mg Tab PO 3.125 mg BID [facility]IMA Administration Clopidogrel Bisulfate 75 mg 01/26/20 09:00 01/28/20 09:06 Clopidogrel Bisulfate 75 Mg Tab PO 75 mg DAILY [facility] Administration Famotidine 20 mg 01/24/20 21:00 01/28/20 09:06 Famotidine 20 Mg Tab PO 20 mg BID NEELIMA Administration Furosemide 20 mg 01/26/20 09:00 01/28/20 09:10 Furosemide 20 Mg Tab PO 20 mg DAILY [facility]A Administration Sacubitril/Valsartan 1 tab 01/26/20 21:00 01/28/20 09:05 Sacubitril 24mg/Valsartan 26mg Tab PO 1 tab BID [facility] Administration Sertraline HCl 100 mg 01/26/20 09:00 01/28/20 09:06 Sertraline Hcl 100 Mg Tab PO 100 mg DAILY [facility] Administration Sodium Chloride 10 ml 01/26/20 21:00 01/28/20 09:13 Flush - Normal Saline 10 Ml Syringe IVF 10 ml Q12HR [facility]ELIMA Administration Trazodone HCl 50 mg 01/25/20 21:00 01/27/20 22:25 Trazodone Hcl 50 Mg Tab PO Not Given HS [facility] - Exam Neck: negative: supple, symmetric, no JVD, no thyromegaly, no lymphadenopathy, no carotid bruit, JVD Heart: negative: RRR, no murmur, no gallops, no rubs, normal peripheral pulses, irregular, diminshed peripheral pulses, murmur present, II/IV, III/IV Respiratory: negative: CTAB, no wheezes, no rales, no ronchi, normal chest expansion, no tachypnea, normal percussion, rales, rhonchi, tachypneic, wheezes Gastrointestinal: negative: soft, non-tender, non-distended, normal bowel sounds, no palpable masses, no hepatomegaly, no splenomegaly, no bruit, no guarding, no rigidity, tender to palpation, distended, diminished bowl sounds, voluntary guarding Hosp A/P (1) Atrial fibrillation with rapid ventricular response Code(s): I48.91 - UNSPECIFIED ATRIAL FIBRILLATION Status: Acute (2) NSTEMI (non-ST elevated myocardial infarction) Code(s): I21.4 - NON-ST ELEVATION (NSTEMI) MYOCARDIAL INFARCTION Status: Acute (3) CAD (coronary artery disease) Code(s): I25.10 - ATHSCL HEART DISEASE OF [place] CORONARY ARTERY W/O ANG PCTRS Status: Chronic (4) Tobacco abuse Code(s): Z72.0 - TOBACCO USE Status: Chronic (5) Hyponatremia Code(s): E87.1 - HYPO-OSMOLALITY AND HYPONATREMIA Status: Acute - Plan Patient underwent cardiac cath no intervention. Patient will undergo a biventricular/defibrillator by EP. We will start patient back on Plavix and carvedilol. Patient has had bladder cancer. He is currently not on any anticoagulation. Will resume his aspirin and Plavix. Patient is being loaded with amiodarone. Will continue statin 01/27 patient unable to get the ICD since his left subclavian was occluded and had significant collaterals. Patient will require a LifeVest. We will titrate his medications for low blood pressure. Discharge when okay with cardiology.
[2020-01-28] MEDS: Atorvastatin Calcium 40 MG TAB PO SCH (21:10)
[2020-01-28] MEDS: traZODone HCl 50 MG TAB PO SCH (21:16)
[2020-01-29 05:02] LABS: Anion Gap 10 mmol/L (10-20); BUN (Urea Nitrogen) 10 mg/dL (8.4-25.7); Calc. Creatinine Clearance 89 mL/min (70-130); Calcium 8.5 mg/dL (7.8-10.44); Carbon Dioxide 28 mmol/L (23-31); Chloride 96 mmol/L (98-107); Estimated GFR-MDRD Greater than 90; Glucose 87 mg/dL (80-115); Potassium 4.1 mmol/L (3.5-5.1); Sodium 130 mmol/L (136-145)
[2020-01-29 07:42] VITALS: TEMP 97.9
[2020-01-29] MEDS: Carvedilol 3.125 MG TAB PO SCH (09:04)
[2020-01-29] MEDS: Aspirin Chewable 81 MG TAB PO SCH (09:04)
[2020-01-29] MEDS: Amiodarone 200 MG TAB PO SCH ×2 (09:04→16:07)
[2020-01-29] MEDS: Furosemide 20 MG TAB PO SCH (09:05)
[2020-01-29] MEDS: Clopidogrel Bisulfate 75 MG TAB PO SCH (09:06)
[2020-01-29] MEDS: Famotidine 20 MG TAB PO SCH (09:06)
[2020-01-29 13:22] VITALS: BP 120/59
[2020-01-29] MEDS ORDERED: Mometasone 200 MCG/Formoterol 5 MCG 120 PUFF INHALER INH SCH (18:30)
[2020-01-29] MEDS ORDERED: Ipratropium Bromide 2.5 ml Neb NEB SCH (19:00)
--- NOTE | 2020-02-01 09:55 | DIS ---
DATE OF ADMISSION: 01/25/2020 DATE OF DISCHARGE: 01/29/2020 DISCHARGE DIAGNOSES: 1. Atrial fibrillation with rapid ventricular response. 2. [id number] myocardial infarction. 3. Coronary artery disease. 4. Tobacco abuse. 5. Hyponatremia, resolved. HOSPITAL COURSE: The patient is a 64-year-old male, who initially presented to the hospital on 01/24 with chest pain and palpitations. He was noted to have some elevated troponins. At this time, Cardiology was consulted. The patient underwent a cardiac catheterization, no intervention. Cardiac cath indicated 3-vessel coronary artery disease, 1/3 grafts were patent, severely impaired ventricular function. The patient had an echocardiogram, which indicated an EF of 15% to 20%. The patient has a pacemaker. Recommendation was to upgrade the patient to an ICD. EP was consulted; however, unsuccessful upgrading of the ICD given the left subclavian was occluded and significant collaterals were noted. At this time, recommendation was LifeVest and titrate the blood pressure medications. The patient was then discharged home. The patient was not a candidate for anticoagulation given his recent history of bladder cancer and significant bleeding, and the patient had a recent biopsy done. He will follow up as an outpatient. He is on amiodarone. He is currently sinus. HOME MEDICATIONS: Will be: 1. Budesonide-formoterol 2 puffs b.i.d. 2. Spiriva 1 puff daily. 3. Aspirin 81 mg daily. 4. Clopidogrel 75 mg daily. 5. Carvedilol 3.125 twice a day. 6. Entresto 1 tab daily. 7. Amiodarone 400 mg twice a day for 2 weeks and then 200 mg twice a day for 2 weeks and then 200 mg daily. I have recommended the patient to follow up with his primary and also with Cardiology. The patient will also follow up with Oncology to see if it is appropriate to start the patient on anticoagulation given his high risk for stroke. At this time, Cardiology recommended against anticoagulation on this patient. PHYSICAL EXAMINATION: VITAL SIGNS: His temperature was 97.9, pulse 60, respiratory rate 16, saturation 97% on room air, blood pressure 120/59. GENERAL: He is awake, alert, and oriented x3. Does not appear in distress. CV: S1, S2 present. No rubs, murmurs, or gallops. He will be discharged home. He will follow up with Cardiology and also EP. He has his LifeVest fitted and also with his oncologist. Job ID: [id number]
== END 2020-01-29 16:14 | disposition home or self-care (01) | DRG 281 ==
LOC: ERS 19:12 → ERHOLD 20:41 → 2NO 01-25 13:14 → OBSVTOIN 01-25 14:40
PROVIDERS: ADMIT Internal Medicine; ATTEND Internal Medicine
PROC: B2111ZZ Fluoroscopy of Multiple Coronary Arteries using Low Osmolar Contrast (ICD-10-PCS; principal; 2020-01-26)
PROC: B2181ZZ Fluoroscopy of Left Internal Mammary Bypass Graft using Low Osmolar Contrast (ICD-10-PCS; 2020-01-26)
PROC: B2131ZZ Fluoroscopy of Multiple Coronary Artery Bypass Grafts using Low Osmolar Contrast (ICD-10-PCS; 2020-01-26)
PROC: B2151ZZ Fluoroscopy of Left Heart using Low Osmolar Contrast (ICD-10-PCS; 2020-01-26)
PROC: 4A023N7 Measurement of Cardiac Sampling and Pressure, Left Heart, Percutaneous Approach (ICD-10-PCS; 2020-01-26)
PROC: 05JY3ZZ Inspection of Upper Vein, Percutaneous Approach (ICD-10-PCS; 2020-01-27)
DX: I21.4 Non-ST elevation (NSTEMI) myocardial infarction (principal); R64 Cachexia; Z68.44 Body mass index [BMI] 60.0-69.9, adult; I50.22 Chronic systolic (congestive) heart failure; E87.1 Hypo-osmolality and hyponatremia; I82.B12 Acute embolism and thrombosis of left subclavian vein; F17.210 Nicotine dependence, cigarettes, uncomplicated; Z20.828 Contact with and (suspected) exposure to other viral communicable diseases; I48.0 Paroxysmal atrial fibrillation; F41.9 Anxiety disorder, unspecified; I25.10 Atherosclerotic heart disease of native coronary artery without angina pectoris; F32.9 Major depressive disorder, single episode, unspecified; E78.00 Pure hypercholesterolemia, unspecified; I11.0 Hypertensive heart disease with heart failure; I25.5 Ischemic cardiomyopathy; R07.9 Chest pain, unspecified; J44.9 Chronic obstructive pulmonary disease, unspecified; Z95.1 Presence of aortocoronary bypass graft; Z88.6 Allergy status to analgesic agent; Z79.82 Long term (current) use of aspirin; Z95.0 Presence of cardiac pacemaker; Z79.01 Long term (current) use of anticoagulants; I25.2 Old myocardial infarction; Z79.899 Other long term (current) drug therapy; Z95.5 Presence of coronary angioplasty implant and graft; Z53.8 Procedure and treatment not carried out for other reasons
CPT/HCPCS: 36005; 36415; 71045; 75820; 80048; 80053; 80061; 82553; 84484; 85025; 85347; 87635; 93005; 93459; 93798; 94760; 96372; 96374; 99152; 99153; G0378; J0690; J1580; J1644; J1650; J2001; J2250; J2370; J2405; J2704; J2720; J3010; Q9967; U0003

== ENCOUNTER 2020-02-13 10:07 | Emergency (ER) | payer OTHER ==
[2020-02-13] MEDS ORDERED: Dexamethasone 4 MG TAB ONE (10:48)
[2020-02-13] MEDS ORDERED: cefTRIAXone\\ROCEPHIN 1 GM VIAL ONE (10:48)
[2020-02-13] MEDS ORDERED: Azithromycin 250 MG TAB ONE (10:48)
[2020-02-13 11:11] LABS: #Basophils 0.1 thou/uL (0.0-0.2); #Eosinphils 0.1 thou/uL (0.0-0.7); #Lymphocytes 1.6 thou/uL (1.20-3.40); #Neutrophils 7.7 thou/uL (1.40-6.50); %Basophils 0.7 % (0.0-1.0); %Eosinophils 1.4 % (0.0-10.0); %Lymphocytes 15.3 % (21.0-51.0); %Monocytes 9.2 % (0.0-10.0); %Neutrophils 73.5 % (42.0-75.0); Hemoglobin 13.4 g/dL (14.0-18.0); Mean Corpuscular HGB CONC 32.9 g/dL (32.0-36.0); Mean Corpuscular Hemoglobin 27.1 pg (27.0-31.0); Mean Corpuscular Volume 82.4 fL (78.0-98.0); Mean Platelet Volume 7.1 fL (7.4-10.4); Platelet Count 341 thou/uL (130-400); Red Blood Cell (RBC) Count 4.95 mill/uL (4.70-6.10); White Blood Cell (WBC) Count 10.5 thou/uL (4.8-10.8)
--- NOTE | 2020-02-13 11:29 | RAD ---
Portable chest: INDICATION: Cough. COMPARISON: 01/24/2020. FINDINGS: Parenchymal opacity in both apices again noted more pronounced on the right. Spiculated nodular mass in the left apex is again seen. There is a parenchymal opacity in the left mid lung which was noted on the prior study and is stable possibly representing chronic pleural or parenchymal change. Hyper expansion with flattened diaphragms again noted. Postop sternotomy change and pacemaker leads are un changed in position. IMPRESSION: Chronic findings of the chest appear stable with no evidence of acute interval change. POS: [facility]
[2020-02-13 11:30] LABS: ALT (SGPT) 14 U/L (8-55); AST (SGOT) 13 U/L (5-34); Albumin 3.8 g/dL (3.4-4.8); Alkaline Phosphatase 118 U/L (40-110); Anion Gap 14 mmol/L (10-20); BUN (Urea Nitrogen) 9 mg/dL (8.4-25.7); Bilirubin, Total 0.2 mg/dL (0.2-1.2); Calc. Creatinine Clearance 0 mL/min (70-130); Carbon Dioxide 26 mmol/L (23-31); Chloride 95 mmol/L (98-107); Glucose 74 mg/dL (80-115); Magnesium 2.1 mg/dL (1.6-2.6); Potassium 4.2 mmol/L (3.5-5.1); Protein, Total 7.8 g/dL (5.8-8.1); Sodium 131 mmol/L (136-145)
[2020-02-13] MEDS ORDERED: Albuterol 200 PUFF (6.7GM INHALER) ONE (11:56)
[2020-02-13 12:00] LABS: Bilirubin Negative (Negative); Blood, Urine Negative (Negative); Clarity Clear (Clear); Glucose, Urine (Dipstick) Normal (Negative); Ketone, Urine Negative (Negative); Leukocyte Negative Leu/uL (Negative); Nitrite Negative (Negative); Protein, Urine (Dipstick) 10 mg/dL (Neg-Trace); Specific Gravity, Urine 1.017 (1.002-1.036); Urobilinogen Normal mg/dL (Less than 2)
--- NOTE | 2020-02-13 13:39 | CT ---
EXAM: CT angiogram of the chest including 3-D rendering: HISTORY: Dizziness abnormal electrolytes cough and shortness of breath COMPARISON: Prior chest x-ray 01/24/2020 FINDINGS: There is adequate opacification of the pulmonary arteries. No evidence for aortic aneurysm with mild dilatation of the aortic root No convincing CT evidence for acute pulmonary embolism.. Although there is very severe parenchymal ch anges with volume loss in both right and Left upper lobes with extensive bullous changes and extensive bronchiectasis indicating severe bilate ral upper lung disease with some bilateral associated volume loss. There is considerable narrowing and attenuation of numerous arteries extending into the upper lobes. Several of these arteries are cu t off at their origins which I favor to be related to the underlying pulmonary parenchymal disease. In the right upper lobe branch there is a small focus of filling defect distally just at the common o ff of the artery. I feel this is again probably related to underlying pulmonary disease although could conceivably represent some chronic emboli. None of these have the typical appearance of acute p ulmonary emboli. Bilateral emphysema changes. No evidence for mediastinal mass or adenopathy. Evidence for pericardial effusion up to 0.9 cm in thickness The visualized upper abdomen is unremarkable. IMPRESSION: Extensive volume loss and scarring with bronchiectasis and bullous changes in the upper lung zones bi laterally. Multiple upper lobe pulmonary arteries demonstrate marked narrowing as well as a cut off appearance at their origins, probably related to underlying pulmonary disease. There is an appearance of possible minimal filling defect at the age of these cut offs I favor this being related to chronic change, possibly prior chronic embolism with some persistent thrombus, or more likely scar, a lthough this does not have a typical appearance for acute pulmonary embolism the possibility of some of this disease being acute cannot be excluded. The appearance of the chest is not significantly changed from 01/24/2020 chest x-ray.
[2020-02-13] MEDS ORDERED: Furosemide 40 MG/4 ML VIAL ONE (13:53)
[2020-02-13] MEDS ORDERED: Iopamidol-370 76% 500 ML 1 ML ONE (14:26)
[2020-02-13 18:00] LABS: SARS-CoV-2 MS2 Positive; SARS-CoV-2 N Gene Negative; SARS-CoV-2 S Gene Negative; SARS-CoV-2 by NAA Not Detected (NotDetected); SARS-CoV-2 orf1ab Negative
[2020-02-13] MEDS ORDERED: Enoxaparin Sodium 60 MG/0.6 ML SYRINGE ONE (18:36)
== END 2020-02-13 22:24 ==
LOC: ERS 10:07
DX: I50.9 Heart failure, unspecified (principal); I25.2 Old myocardial infarction; I25.10 Atherosclerotic heart disease of native coronary artery without angina pectoris; J43.9 Emphysema, unspecified; F17.210 Nicotine dependence, cigarettes, uncomplicated; Z79.899 Other long term (current) drug therapy
CPT/HCPCS: 36415; 71045; 71275; 80053; 81003; 83735; 83880; 84484; 85025; 85379; 87635; 93005; 96365; 96372; 96375; J0696; J1650; J1940; J8540; Q9967; U0003

== ENCOUNTER 2020-05-04 17:00 | Emergency (ER) | payer OTHER ==
[2020-05-04 17:17] LABS: #Basophils 0.1 thou/uL (0.0-0.2); #Eosinphils 0.1 thou/uL (0.0-0.7); #Lymphocytes 1.2 thou/uL (1.20-3.40); #Monocytes 1.1 thou/uL (0.11-0.59); #Neutrophils 8.1 thou/uL (1.40-6.50); %Basophils 0.6 % (0.0-1.0); %Eosinophils 0.5 % (0.0-10.0); %Lymphocytes 11.3 % (21.0-51.0); %Monocytes 10.5 % (0.0-10.0); %Neutrophils 77.1 % (42.0-75.0); Hemoglobin 12.3 g/dL (14.0-18.0); Mean Corpuscular HGB CONC 31.9 g/dL (32.0-36.0); Mean Corpuscular Hemoglobin 27.5 pg (27.0-31.0); Mean Corpuscular Volume 86.3 fL (78.0-98.0); Mean Platelet Volume 7.7 fL (7.4-10.4); Platelet Count 267 thou/uL (130-400); RBC Distribution Width 16.2 % (11.5-14.5); Red Blood Cell (RBC) Count 4.47 mill/uL (4.70-6.10); White Blood Cell (WBC) Count 10.4 thou/uL (4.8-10.8)
[2020-05-04] MEDS ORDERED: Levalbuterol HCl 1.25 MG/0.5 ML NEB NEB SCH (17:30)
[2020-05-04] MEDS ORDERED: Sodium Chloride For Inhalation 0.9% 3 ML NEB ONE (17:34)
--- NOTE | 2020-05-04 17:53 | RAD ---
Chest AP view INDICATION: History of chest pain and defibrillator activity COMPARISON: February 13, 2020 single view chest radiograph FINDINGS: Lungs: The prominent scarring involving both upper lobes with retraction of the superior aspect of t he ronda are stable. Lungs are hyperexpanded. Bronchiectasis within the upper lobes is stable. Cardiac silhouette: There is been interval revision of the previously seen pacemaker overlying left chest wall. A new dual lead AICD is now in place with a new generator pack and new AICD leads. Midline sternotomy changes are stable. Pulmonary vasculature: Normal Pleural spaces: No pleural effusion or pneumothorax is demonstrated. Upper abdomen: No abnormality seen. Osseous structures: No acute osseous abnormality. Additional findings: None. IMPRESSION: No acute cardiopulmonary abnormality. New AICD. Stable chronic lung changes.
[2020-05-04 17:55] LABS: ALT (SGPT) Less than 7 U/L (8-55); AST (SGOT) 13 U/L (5-34); Albumin 3.2 g/dL (3.4-4.8); Alkaline Phosphatase 90 U/L (40-110); Anion Gap 10 mmol/L (10-20); BUN (Urea Nitrogen) 9 mg/dL (8.4-25.7); Bilirubin, Total 0.4 mg/dL (0.2-1.2); CK (CPK) 37 U/L (30-200); Calc. Creatinine Clearance 0 mL/min (70-130); Calcium 8.1 mg/dL (7.8-10.44); Carbon Dioxide 26 mmol/L (23-31); Chloride 100 mmol/L (98-107); Globulin 3.1 g/dL (2.4-3.5); Glucose 95 mg/dL (80-115); Magnesium 1.9 mg/dL (1.6-2.6); Potassium 3.4 mmol/L (3.5-5.1); Protein, Total 6.3 g/dL (5.8-8.1); Sodium 133 mmol/L (136-145)
[2020-05-04 18:19] LABS: CKMB 2.5 ng/mL (0-6.6)
[2020-05-04 21:23] LABS: SARS-CoV-2 NAA Rapid Test Not Detected (NotDetected)
[2020-05-05 01:29] LABS: Troponin I 1.574 ng/mL (< 0.028)
[2020-05-05] MEDS ORDERED: Heparin 10,000 UNITS/ 10 ML VIAL ONE (01:42)
[2020-05-05] MEDS ORDERED: Aspirin 325 MG TAB ONE (01:42)
[2020-05-05] MEDS ORDERED: Albuterol 200 PUFF (6.7GM INHALER) ONE (03:53)
== END 2020-05-05 04:02 | disposition short-term general hospital (02) ==
LOC: ERS 17:00
DX: I21.4 Non-ST elevation (NSTEMI) myocardial infarction (principal); I25.2 Old myocardial infarction; J43.9 Emphysema, unspecified; I25.10 Atherosclerotic heart disease of native coronary artery without angina pectoris; I50.9 Heart failure, unspecified; F17.210 Nicotine dependence, cigarettes, uncomplicated; Z79.899 Other long term (current) drug therapy; Z20.822 Contact with and (suspected) exposure to COVID-19
CPT/HCPCS: 36415; 71045; 80053; 82550; 82553; 83735; 83880; 84484; 85025; 93005; 94640; 96374; J1644; J7612; U0002

== ENCOUNTER 2020-12-04 19:08 | Inpatient (IN) | payer OTHER ==
[2020-12-04 19:41] LABS: #Eosinphils 0.1 thou/uL (0.0-0.7); #Monocytes 1.1 thou/uL (0.11-0.59); #Neutrophils 10.3 thou/uL (1.40-6.50); %Basophils 0.1 % (0.0-1.0); %Monocytes 8.5 % (0.0-10.0); %Neutrophils 82.4 % (42.0-75.0); Hemoglobin 12.2 g/dL (14.0-18.0); Mean Corpuscular HGB CONC 31.6 g/dL (32.0-36.0); Mean Corpuscular Hemoglobin 27.2 pg (27.0-31.0); Mean Corpuscular Volume 86.2 fL (78.0-98.0); Mean Platelet Volume 7.7 fL (7.4-10.4); Platelet Count 272 thou/uL (130-400); RBC Distribution Width 15.8 % (11.5-14.5); Red Blood Cell (RBC) Count 4.47 mill/uL (4.70-6.10); White Blood Cell (WBC) Count 12.5 thou/uL (4.8-10.8)
[2020-12-04] MEDS ORDERED: Lidocaine Viscous Sol 2% 15 ml UD Cup ONE (19:42)
[2020-12-04 20:03] LABS: ALT (SGPT) 16 U/L (8-55); AST (SGOT) 16 U/L (5-34); Albumin 3.2 g/dL (3.4-4.8); Alkaline Phosphatase 129 U/L (40-110); Anion Gap 9 mmol/L (10-20); BUN (Urea Nitrogen) 16 mg/dL (8.4-25.7); Bilirubin, Total 0.3 mg/dL (0.2-1.2); Calc. Creatinine Clearance 0 mL/min (70-130); Calcium 8.9 mg/dL (7.8-10.44); Carbon Dioxide 34 mmol/L (23-31); Chloride 92 mmol/L (98-107); Glucose 109 mg/dL (80-115); Potassium 4.2 mmol/L (3.5-5.1); Protein, Total 6.2 g/dL (5.8-8.1); Sodium 131 mmol/L (136-145)
[2020-12-04 20:35] LABS: Bacteria/HPF 1+ HPF (None Seen); Bilirubin Negative (Negative); Blood, Urine Negative (Negative); Glucose, Urine (Dipstick) Normal (Negative); Ketone, Urine Negative (Negative); Leukocyte 500 Leu/uL (Negative); Nitrite Negative (Negative); Protein, Urine (Dipstick) 30 mg/dL (Neg-Trace); Specific Gravity, Urine 1.016 (1.002-1.036); Squamous Epithelial 0-3 HPF (0-3); WBC/HPF Greater than 50 HPF (0-3); pH, Urine 6.5 (5.0-9.0)
[2020-12-04 20:36] LABS: Clarity Cloudy (Clear)
[2020-12-05] MEDS ORDERED: Ondansetron PF 4 MG/2 ML Vial IVP PRN (00:27)
[2020-12-05] MEDS ORDERED: Ondansetron ODT 4 MG TAB PO PRN (00:27)
[2020-12-05] MEDS ORDERED: Acetaminophen 325 MG TAB PO PRN (00:27)
[2020-12-05] MEDS ORDERED: Acetaminophen 650 MG Suppository PR PRN (00:27)
[2020-12-05] MEDS ORDERED: Furosemide 40 MG/4 ML VIAL SLOW IVP SCH (01:15)
[2020-12-05] MEDS ORDERED: methylPREDNISolone Sod Succ 40 MG VIAL IVP SCH ×2 (01:15→09:00)
[2020-12-05 01:18] LABS: Lactic Acid 0.9 mmol/L (0.5-2.2)
[2020-12-05 01:28] LABS: SARS-CoV-2 NAA Rapid Test Not Detected (NotDetected)
[2020-12-05] MEDS: Cefepime 1 GM in Sodium Chloride 0.9% 100 ML IVPB SCH ×2 (01:43→15:25)
[2020-12-05 04:39] LABS: #Eosinphils 0.1 thou/uL (0.0-0.7); #Lymphocytes 0.8 thou/uL (1.20-3.40); #Monocytes 0.8 thou/uL (0.11-0.59); #Neutrophils 12.4 thou/uL (1.40-6.50); %Basophils 0.3 % (0.0-1.0); %Lymphocytes 5.6 % (21.0-51.0); %Monocytes 5.7 % (0.0-10.0); %Neutrophils 87.4 % (42.0-75.0); Hemoglobin 12.6 g/dL (14.0-18.0); Mean Corpuscular HGB CONC 30.8 g/dL (32.0-36.0); Mean Corpuscular Hemoglobin 26.8 pg (27.0-31.0); Mean Corpuscular Volume 86.9 fL (78.0-98.0); Mean Platelet Volume 8.2 fL (7.4-10.4); Platelet Count 295 thou/uL (130-400); RBC Distribution Width 15.9 % (11.5-14.5); White Blood Cell (WBC) Count 14.2 thou/uL (4.8-10.8)
[2020-12-05 04:48] LABS: Anion Gap 12 mmol/L (10-20); BUN (Urea Nitrogen) 13 mg/dL (8.4-25.7); Calc. Creatinine Clearance 81 mL/min (70-130); Calcium 8.7 mg/dL (7.8-10.44); Carbon Dioxide 30 mmol/L (23-31); Chloride 90 mmol/L (98-107); Glucose 104 mg/dL (80-115); Potassium 4.4 mmol/L (3.5-5.1); Sodium 128 mmol/L (136-145)
[2020-12-05] MEDS ORDERED: Nitroglycerin 0.4 MG TAB (25 Tab Bottle) SL PRN (07:39)
[2020-12-05] MEDS ORDERED: Albumin 25% 25 GM/100 ML BOT IVPB SCH (08:30)
[2020-12-05] MEDS ORDERED: Carvedilol 3.125 MG TAB PO SCH (09:00)
[2020-12-05] MEDS ORDERED: Magnesium Oxide 400 MG TAB PO SCH (09:00)
[2020-12-05] MEDS ORDERED: Amiodarone 200 MG TAB PO SCH (09:00)
[2020-12-05] MEDS ORDERED: Ascorbic Acid 500 mg Chewable Tablet PO SCH (09:00)
[2020-12-05] MEDS ORDERED: Enoxaparin Sodium 40 MG/0.4 ML SYRINGE SC SCH (09:00)
[2020-12-05] MEDS: Apixaban 5 MG TAB PO SCH ×2 (09:19→21:16)
[2020-12-05] MEDS: Aspirin Chewable 81 MG TAB PO SCH (09:19)
[2020-12-05] MEDS: Cholecalciferol 1,000 UNITS (25 MCG) TAB PO SCH ×2 (09:20→21:16)
[2020-12-05] MEDS: methylPREDNISolone Sod Succ 40 MG VIAL IVP SCH ×2 (09:20→21:17)
[2020-12-05] MEDS: Cyanocobalamin (Vitamin B-12) 1,000 MCG TAB PO SCH (09:23)
[2020-12-05 10:37] LABS: Creatinine, Urine 52.39 mg/dL (63-166)
[2020-12-05 11:25] LABS: Anion Gap 9 mmol/L (10-20); BUN (Urea Nitrogen) 12 mg/dL (8.4-25.7); Calc. Creatinine Clearance 78 mL/min (70-130); Calcium 8.7 mg/dL (7.8-10.44); Carbon Dioxide 36 mmol/L (23-31); Chloride 90 mmol/L (98-107); Glucose 126 mg/dL (80-115); Potassium 4.4 mmol/L (3.5-5.1); Sodium 131 mmol/L (136-145)
[2020-12-05 18:31] LABS: Albumin 3.2 g/dL (3.4-4.8); Anion Gap 12 mmol/L (10-20); BUN (Urea Nitrogen) 16 mg/dL (8.4-25.7); BUN/Creatinine Ratio 24.24; Calc. Creatinine Clearance 73 mL/min (70-130); Calcium 8.7 mg/dL (7.8-10.44); Carbon Dioxide 33 mmol/L (23-31); Chloride 90 mmol/L (98-107); Glucose 154 mg/dL (80-115); Phosphorus 3.4 mg/dL (2.3-4.7); Potassium 4.7 mmol/L (3.5-5.1); Sodium 130 mmol/L (136-145)
[2020-12-05] MEDS: Atorvastatin Calcium 40 MG TAB PO SCH (21:16)
[2020-12-05] MEDS: Amiodarone 200 MG TAB PO SCH (21:16)
[2020-12-06] MEDS: Cefepime 1 GM in Sodium Chloride 0.9% 100 ML IVPB SCH ×2 (00:40→14:49)
[2020-12-06 05:59] VITALS: BMI 14.2
[2020-12-06 06:22] LABS: Anion Gap 11 mmol/L (10-20); BUN (Urea Nitrogen) 17 mg/dL (8.4-25.7); BUN/Creatinine Ratio 28.81; Calc. Creatinine Clearance 78 mL/min (70-130); Calcium 8.7 mg/dL (7.8-10.44); Carbon Dioxide 33 mmol/L (23-31); Chloride 90 mmol/L (98-107); Glucose 140 mg/dL (80-115); Phosphorus 2.8 mg/dL (2.3-4.7); Potassium 4.6 mmol/L (3.5-5.1); Sodium 129 mmol/L (136-145)
[2020-12-06] MEDS: Ascorbic Acid 500 mg Chewable Tablet PO SCH (08:17)
[2020-12-06] MEDS: Apixaban 5 MG TAB PO SCH ×2 (08:18→22:05)
[2020-12-06] MEDS: Amiodarone 200 MG TAB PO SCH ×2 (08:18→22:05)
[2020-12-06] MEDS: Magnesium Oxide 400 MG TAB PO SCH (08:18)
[2020-12-06] MEDS: Cyanocobalamin (Vitamin B-12) 1,000 MCG TAB PO SCH (08:18)
[2020-12-06] MEDS: Cholecalciferol 1,000 UNITS (25 MCG) TAB PO SCH ×2 (08:18→22:05)
[2020-12-06] MEDS: Ferrous Sulfate 325 MG TAB PO SCH (08:18)
[2020-12-06] MEDS: methylPREDNISolone Sod Succ 40 MG VIAL IVP SCH ×2 (08:18→22:58)
[2020-12-06] MEDS: Aspirin Chewable 81 MG TAB PO SCH (08:18)
[2020-12-06] MEDS ORDERED: Torsemide 20 MG TAB PO SCH ×2 (09:00)
[2020-12-06] MEDS: Torsemide 10 MG TAB PO SCH (09:46)
[2020-12-06] MEDS: Atorvastatin Calcium 40 MG TAB PO SCH (22:05)
[2020-12-07] MEDS: Cefepime 1 GM in Sodium Chloride 0.9% 100 ML IVPB SCH (02:08)
[2020-12-07 05:05] LABS: #Lymphocytes 0.5 thou/uL (1.20-3.40); #Monocytes 0.3 thou/uL (0.11-0.59); #Neutrophils 8.9 thou/uL (1.40-6.50); %Eosinophils 0.2 % (0.0-10.0); %Lymphocytes 5.3 % (21.0-51.0); %Monocytes 3.3 % (0.0-10.0); %Neutrophils 91.3 % (42.0-75.0); Hemoglobin 11.1 g/dL (14.0-18.0); Mean Corpuscular HGB CONC 31.8 g/dL (32.0-36.0); Mean Platelet Volume 8.1 fL (7.4-10.4); Platelet Count 341 thou/uL (130-400); RBC Distribution Width 15.7 % (11.5-14.5); Red Blood Cell (RBC) Count 4.11 mill/uL (4.70-6.10); White Blood Cell (WBC) Count 9.7 thou/uL (4.8-10.8)
[2020-12-07 05:32] LABS: Anion Gap 13 mmol/L (10-20); BUN (Urea Nitrogen) 17 mg/dL (8.4-25.7); Calc. Creatinine Clearance 75 mL/min (70-130); Calcium 8.3 mg/dL (7.8-10.44); Carbon Dioxide 31 mmol/L (23-31); Chloride 90 mmol/L (98-107); Glucose 112 mg/dL (80-115); Potassium 3.9 mmol/L (3.5-5.1); Sodium 130 mmol/L (136-145)
[2020-12-07] MEDS: Ferrous Sulfate 325 MG TAB PO SCH (08:39)
[2020-12-07] MEDS: methylPREDNISolone Sod Succ 40 MG VIAL IVP SCH (08:39)
[2020-12-07] MEDS: Aspirin Chewable 81 MG TAB PO SCH (08:39)
[2020-12-07] MEDS: Apixaban 5 MG TAB PO SCH (08:39)
[2020-12-07] MEDS: Torsemide 10 MG TAB PO SCH (08:39)
[2020-12-07] MEDS: Cyanocobalamin (Vitamin B-12) 1,000 MCG TAB PO SCH (08:39)
[2020-12-07] MEDS: Cholecalciferol 1,000 UNITS (25 MCG) TAB PO SCH (08:40)
[2020-12-07] MEDS: Amiodarone 200 MG TAB PO SCH (08:40)
[2020-12-07] MEDS: Ascorbic Acid 500 mg Chewable Tablet PO SCH (08:40)
[2020-12-07] MEDS: Magnesium Oxide 400 MG TAB PO SCH (08:40)
[2020-12-07 12:09] VITALS: BP 104/66; TEMP 98.2
== END 2020-12-07 14:00 | disposition home or self-care (01) | DRG 190 ==
LOC: ERS 19:08 → IMCU/EMU 22:32 → 2NO 12-05 19:52
PROVIDERS: ADMIT Student in an Organized Health Care Education/Training Program; ATTEND Internal Medicine
PROC: 4B02XTZ Measurement of Cardiac Defibrillator, External Approach (ICD-10-PCS; principal; 2020-12-04)
DX: J44.1 Chronic obstructive pulmonary disease with (acute) exacerbation (principal); I50.23 Acute on chronic systolic (congestive) heart failure; N30.00 Acute cystitis without hematuria; E22.2 Syndrome of inappropriate secretion of antidiuretic hormone; E44.0 Moderate protein-calorie malnutrition; Z68.1 Body mass index [BMI] 19.9 or less, adult; I11.0 Hypertensive heart disease with heart failure; Z20.822 Contact with and (suspected) exposure to COVID-19; F41.9 Anxiety disorder, unspecified; F32.9 Major depressive disorder, single episode, unspecified; F17.210 Nicotine dependence, cigarettes, uncomplicated; I95.2 Hypotension due to drugs; T50.905A Adverse effect of unspecified drugs, medicaments and biological substances, initial encounter; I25.5 Ischemic cardiomyopathy; T50.2X5A Adverse effect of carbonic-anhydrase inhibitors, benzothiadiazides and other diuretics, initial encounter; I48.0 Paroxysmal atrial fibrillation; E78.5 Hyperlipidemia, unspecified; Z95.810 Presence of automatic (implantable) cardiac defibrillator; Z95.1 Presence of aortocoronary bypass graft; Z95.5 Presence of coronary angioplasty implant and graft; Z88.5 Allergy status to narcotic agent; Z79.01 Long term (current) use of anticoagulants; Z79.82 Long term (current) use of aspirin; Z79.51 Long term (current) use of inhaled steroids; Z79.899 Other long term (current) drug therapy; Z85.51 Personal history of malignant neoplasm of bladder; Z92.21 Personal history of antineoplastic chemotherapy; Z92.3 Personal history of irradiation; I25.2 Old myocardial infarction
CPT/HCPCS: 36415; 51702; 71045; 80048; 80053; 80069; 81003; 81015; 82570; 83605; 83735; 83880; 83930; 83935; 84156; 84484; 85025; 87040; 93005; 93306; 93798; 94640; 94760; J0692; J1940; J2920; J3490; J7620; U0002

== ENCOUNTER 2020-12-17 10:54 | Inpatient (IN) | payer OTHER ==
[2020-12-17] MEDS ORDERED: Acetaminophen 500 MG TAB ONE (12:10)
[2020-12-17] MEDS ORDERED: Iopamidol-370 76% 500 ML 1 ML ONE (12:22)
[2020-12-17 13:19] LABS: #Eosinphils 0.1 thou/uL (0.0-0.7); #Monocytes 1.3 thou/uL (0.11-0.59); #Neutrophils 12.8 thou/uL (1.40-6.50); %Basophils 0.1 % (0.0-1.0); %Eosinophils 0.6 % (0.0-10.0); %Lymphocytes 6.3 % (21.0-51.0); %Monocytes 8.3 % (0.0-10.0); %Neutrophils 84.8 % (42.0-75.0); Hemoglobin 11.3 g/dL (14.0-18.0); Mean Corpuscular HGB CONC 32.2 g/dL (32.0-36.0); Mean Corpuscular Hemoglobin 27.8 pg (27.0-31.0); Mean Corpuscular Volume 86.4 fL (78.0-98.0); Mean Platelet Volume 7.6 fL (7.4-10.4); Platelet Count 241 thou/uL (130-400); Red Blood Cell (RBC) Count 4.07 mill/uL (4.70-6.10); White Blood Cell (WBC) Count 15.1 thou/uL (4.8-10.8)
[2020-12-17 13:29] LABS: INR-International Normal Ratio 1.4; PTT 46.9 sec (22.9-36.1); Prothrombin Time 17.8 sec (12.0-14.7)
[2020-12-17 13:54] LABS: Albumin 2.8 g/dL (3.4-4.8)
[2020-12-17 13:55] LABS: Chloride 95 mmol/L (98-107); Potassium 4.1 mmol/L (3.5-5.1); Sodium 128 mmol/L (136-145)
[2020-12-17 13:56] LABS: Calcium 7.9 mg/dL (7.8-10.44); Glucose 93 mg/dL (80-115)
[2020-12-17 13:57] LABS: Globulin 2.6 g/dL (2.4-3.5); Protein, Total 5.4 g/dL (5.8-8.1)
[2020-12-17 13:58] LABS: Anion Gap 9 mmol/L (10-20); Bilirubin, Total 0.4 mg/dL (0.2-1.2); Carbon Dioxide 28 mmol/L (23-31)
[2020-12-17 13:59] LABS: Alkaline Phosphatase 105 U/L (40-110)
[2020-12-17 14:00] LABS: Calc. Creatinine Clearance 0 mL/min (70-130)
[2020-12-17 14:01] LABS: BUN (Urea Nitrogen) 10 mg/dL (8.4-25.7)
[2020-12-17 14:02] LABS: ALT (SGPT) 13 U/L (8-55); AST (SGOT) 12 U/L (5-34)
[2020-12-17 14:55] LABS: Bilirubin Negative (Negative); Blood, Urine 3+ (Negative); Clarity Turbid (Clear); Glucose, Urine (Dipstick) Normal (Negative); Ketone, Urine Negative (Negative); Leukocyte 75 Leu/uL (Negative); Nitrite Negative (Negative); Protein, Urine (Dipstick) 70 mg/dL (Neg-Trace); RBC/HPF Greater than 50 HPF (0-3); Squamous Epithelial None Seen HPF (0-3); Urobilinogen Normal mg/dL (Less than 2)
[2020-12-17 14:58] LABS: Bacteria/HPF Rare-Few HPF (None Seen)
[2020-12-17 17:04] LABS: #Eosinphils 0.1 thou/uL (0.0-0.7); #Monocytes 0.9 thou/uL (0.11-0.59); #Neutrophils 11.6 thou/uL (1.40-6.50); %Basophils 0.2 % (0.0-1.0); %Eosinophils 0.9 % (0.0-10.0); %Lymphocytes 7.2 % (21.0-51.0); %Monocytes 6.9 % (0.0-10.0); %Neutrophils 84.9 % (42.0-75.0); Hemoglobin 12.1 g/dL (14.0-18.0); Mean Corpuscular HGB CONC 32.3 g/dL (32.0-36.0); Mean Corpuscular Hemoglobin 27.8 pg (27.0-31.0); Mean Corpuscular Volume 85.9 fL (78.0-98.0); Mean Platelet Volume 7.4 fL (7.4-10.4); Platelet Count 277 thou/uL (130-400); Red Blood Cell (RBC) Count 4.36 mill/uL (4.70-6.10); White Blood Cell (WBC) Count 13.7 thou/uL (4.8-10.8)
[2020-12-17] MEDS ORDERED: Acetaminophen 325 MG TAB PO PRN (17:30)
[2020-12-17] MEDS ORDERED: Senokot S 8.6-50 MG TAB PO PRN (17:30)
[2020-12-17] MEDS ORDERED: Morphine 4 MG/ML VIAL SLOW IVP PRN (17:34)
[2020-12-17] MEDS: Mometasone 100 MCG/Formoterol 5 MCG 120 PUFF INHALER INH SCH (19:05)
[2020-12-17 19:24] LABS: SARS-CoV-2 NAA Rapid Test Not Detected (NotDetected)
[2020-12-17] MEDS: Morphine 4 MG/ML VIAL SLOW IVP PRN (20:50)
[2020-12-17 21:29] VITALS: BMI 18.0
[2020-12-17 22:20] LABS: Hemoglobin 11.5 g/dL (14.0-18.0)
[2020-12-17] MEDS: Mirtazapine 30 MG TAB PO SCH (22:25)
[2020-12-17] MEDS: cefTRIAXone\\ROCEPHIN 1 GM in Sodium Chloride 0.9% 100 ML IVPB SCH (22:25)
[2020-12-17] MEDS: Trospium 20 MG TAB PO SCH (22:25)
[2020-12-17] MEDS: Famotidine 20 MG TAB PO SCH (22:25)
[2020-12-18] MEDS: Morphine 4 MG/ML VIAL SLOW IVP PRN ×3 (03:52→14:44)
[2020-12-18 04:27] LABS: ALT (SGPT) 14 U/L (8-55); AST (SGOT) 12 U/L (5-34); Albumin 2.9 g/dL (3.4-4.8); Alkaline Phosphatase 98 U/L (40-110); Anion Gap 11 mmol/L (10-20); BUN (Urea Nitrogen) 8 mg/dL (8.4-25.7); Bilirubin, Total 0.3 mg/dL (0.2-1.2); Calc. Creatinine Clearance 115 mL/min (70-130); Calcium 8.7 mg/dL (7.8-10.44); Carbon Dioxide 25 mmol/L (23-31); Chloride 99 mmol/L (98-107); Globulin 3.2 g/dL (2.4-3.5); Glucose 75 mg/dL (80-115); Potassium 4.4 mmol/L (3.5-5.1); Protein, Total 6.1 g/dL (5.8-8.1); Sodium 131 mmol/L (136-145)
[2020-12-18 06:13] LABS: Band 6 % (5-11); Hemoglobin 11.9 g/dL (14.0-18.0); Lymphocytes 9 % (21-51); MDiff Complete? YES; Mean Corpuscular HGB CONC 31.4 g/dL (32.0-36.0); Mean Corpuscular Hemoglobin 26.6 pg (27.0-31.0); Mean Corpuscular Volume 84.6 fL (78.0-98.0); Mean Platelet Volume 8.5 fL (7.4-10.4); Monocytes 10 % (0-10); Neutrophil 75 % (42-75); Platelet Count 270 thou/uL (130-400); RBC Distribution Width 16.1 % (11.5-14.5); Red Blood Cell (RBC) Count 4.47 mill/uL (4.70-6.10); White Blood Cell (WBC) Count 14.3 thou/uL (4.8-10.8)
[2020-12-18] MEDS: Tamsulosin HCl 0.4 MG CAP PO SCH (08:59)
[2020-12-18] MEDS: Famotidine 20 MG TAB PO SCH ×2 (08:59→20:54)
[2020-12-18] MEDS: Amiodarone 200 MG TAB PO SCH (09:00)
[2020-12-18] MEDS ORDERED: Non-Formulary Item 1 EACH (Tiotropium Bromide 4 GM Inhaler) IH SCH (09:00)
[2020-12-18] MEDS ORDERED: Non-Formulary Item 1 EACH (Multivitamin [Multivitamin] 1 EACH Tablet) PO SCH ×2 (09:00)
[2020-12-18] MEDS: Furosemide 20 MG/2 ML VIAL SLOW IVP SCH (10:00)
[2020-12-18] MEDS ORDERED: Multivit, Therapeutic 1 TAB PO SCH (10:30)
[2020-12-18] MEDS: Iron Polysaccharides Complex 150 MG CAP PO SCH (10:31)
[2020-12-18] MEDS: Trospium 20 MG TAB PO SCH ×2 (10:31→20:54)
[2020-12-18] MEDS ORDERED: Ipratropium Bromide 2.5 ml Neb NEB SCH (13:00)
[2020-12-18] MEDS: Mometasone 100 MCG/Formoterol 5 MCG 120 PUFF INHALER INH SCH (14:33)
[2020-12-18] MEDS ORDERED: Albuterol Sulfate 2.5 mg/3 ml Neb NEB PRN (16:59)
[2020-12-18] MEDS: cefTRIAXone\\ROCEPHIN 1 GM in Sodium Chloride 0.9% 100 ML IVPB SCH (20:53)
[2020-12-18] MEDS: Mirtazapine 30 MG TAB PO SCH (20:54)
[2020-12-19] MEDS: Morphine 4 MG/ML VIAL SLOW IVP PRN (04:50)
[2020-12-19] MEDS: Mometasone 100 MCG/Formoterol 5 MCG 120 PUFF INHALER INH SCH ×2 (07:24→08:56)
[2020-12-19] MEDS: Iron Polysaccharides Complex 150 MG CAP PO SCH (08:41)
[2020-12-19] MEDS: Famotidine 20 MG TAB PO SCH ×2 (08:41→20:49)
[2020-12-19] MEDS: Tamsulosin HCl 0.4 MG CAP PO SCH (08:41)
[2020-12-19] MEDS: Trospium 20 MG TAB PO SCH ×3 (08:41→20:49)
[2020-12-19] MEDS: Amiodarone 200 MG TAB PO SCH (08:41)
[2020-12-19] MEDS: Multivit, Therapeutic 1 TAB PO SCH (08:41)
[2020-12-19] MEDS: Furosemide 20 MG/2 ML VIAL SLOW IVP SCH (10:12)
[2020-12-19] MEDS ORDERED: Sodium Chloride 0.9% 250 ML 250 ML IVPB SCH (10:30)
[2020-12-19] MEDS: traMADol HCl 50 MG TAB PO PRN ×2 (15:22→21:49)
[2020-12-19] MEDS: cefTRIAXone\\ROCEPHIN 1 GM in Sodium Chloride 0.9% 100 ML IVPB SCH (20:48)
[2020-12-19] MEDS: Mirtazapine 30 MG TAB PO SCH (20:49)
[2020-12-20] MEDS ORDERED: Cyclobenzaprine 10 MG TAB PO SCH (02:45)
[2020-12-20] MEDS: Mometasone 100 MCG/Formoterol 5 MCG 120 PUFF INHALER INH SCH ×3 (07:56→20:08)
[2020-12-20] MEDS: Famotidine 20 MG TAB PO SCH ×2 (08:53→20:59)
[2020-12-20] MEDS: Amiodarone 200 MG TAB PO SCH (08:53)
[2020-12-20] MEDS: Trospium 20 MG TAB PO SCH ×2 (08:53→20:59)
[2020-12-20] MEDS: Iron Polysaccharides Complex 150 MG CAP PO SCH (08:53)
[2020-12-20] MEDS: Multivit, Therapeutic 1 TAB PO SCH (08:53)
[2020-12-20] MEDS: Tamsulosin HCl 0.4 MG CAP PO SCH (08:55)
[2020-12-20 12:01] LABS: #Eosinphils 0.1 thou/uL (0.0-0.7); #Monocytes 0.8 thou/uL (0.11-0.59); #Neutrophils 9.9 thou/uL (1.40-6.50); %Basophils 0.3 % (0.0-1.0); %Eosinophils 0.9 % (0.0-10.0); %Lymphocytes 8.2 % (21.0-51.0); %Monocytes 7.1 % (0.0-10.0); %Neutrophils 83.5 % (42.0-75.0); Hemoglobin 10.4 g/dL (14.0-18.0); Mean Corpuscular HGB CONC 30.8 g/dL (32.0-36.0); Mean Corpuscular Hemoglobin 26.7 pg (27.0-31.0); Mean Corpuscular Volume 86.7 fL (78.0-98.0); Mean Platelet Volume 7.1 fL (7.4-10.4); Platelet Count 248 thou/uL (130-400); RBC Distribution Width 15.4 % (11.5-14.5); Red Blood Cell (RBC) Count 3.88 mill/uL (4.70-6.10); White Blood Cell (WBC) Count 11.9 thou/uL (4.8-10.8)
[2020-12-20] MEDS: traMADol HCl 50 MG TAB PO PRN (15:07)
[2020-12-20] MEDS: cefTRIAXone\\ROCEPHIN 1 GM in Sodium Chloride 0.9% 100 ML IVPB SCH (20:58)
[2020-12-20] MEDS: Mirtazapine 30 MG TAB PO SCH (20:59)
[2020-12-21] MEDS: traMADol HCl 50 MG TAB PO PRN (01:34)
[2020-12-21] MEDS: Mometasone 100 MCG/Formoterol 5 MCG 120 PUFF INHALER INH SCH ×2 (06:54→18:18)
[2020-12-21] MEDS: Famotidine 20 MG TAB PO SCH ×2 (08:28→20:37)
[2020-12-21] MEDS: Tamsulosin HCl 0.4 MG CAP PO SCH (08:28)
[2020-12-21] MEDS: Iron Polysaccharides Complex 150 MG CAP PO SCH (08:28)
[2020-12-21] MEDS: Multivit, Therapeutic 1 TAB PO SCH (08:28)
[2020-12-21] MEDS: Amiodarone 200 MG TAB PO SCH (08:29)
[2020-12-21] MEDS: Trospium 20 MG TAB PO SCH ×2 (10:00→20:37)
[2020-12-21 10:32] LABS: #Basophils 0.1 thou/uL (0.0-0.2); #Eosinphils 0.1 thou/uL (0.0-0.7); #Lymphocytes 0.8 thou/uL (1.20-3.40); #Monocytes 1.1 thou/uL (0.11-0.59); #Neutrophils 11.1 thou/uL (1.40-6.50); %Basophils 0.5 % (0.0-1.0); %Eosinophils 0.5 % (0.0-10.0); %Lymphocytes 6.3 % (21.0-51.0); %Monocytes 8.4 % (0.0-10.0); %Neutrophils 84.3 % (42.0-75.0); Hemoglobin 12.2 g/dL (14.0-18.0); Mean Corpuscular HGB CONC 31.3 g/dL (32.0-36.0); Mean Corpuscular Hemoglobin 27.3 pg (27.0-31.0); Mean Corpuscular Volume 87.4 fL (78.0-98.0); Mean Platelet Volume 7.9 fL (7.4-10.4); Platelet Count 313 thou/uL (130-400); RBC Distribution Width 15.6 % (11.5-14.5); Red Blood Cell (RBC) Count 4.48 mill/uL (4.70-6.10); White Blood Cell (WBC) Count 13.2 thou/uL (4.8-10.8)
[2020-12-21 10:48] LABS: Anion Gap 15 mmol/L (10-20); BUN (Urea Nitrogen) 7 mg/dL (8.4-25.7); Calc. Creatinine Clearance 102 mL/min (70-130); Calcium 8.7 mg/dL (7.8-10.44); Carbon Dioxide 33 mmol/L (23-31); Chloride 88 mmol/L (98-107); Glucose 103 mg/dL (80-115); Potassium 4.8 mmol/L (3.5-5.1); Sodium 131 mmol/L (136-145)
[2020-12-21] MEDS: Morphine 4 MG/ML VIAL SLOW IVP PRN (11:50)
[2020-12-21] MEDS: cefTRIAXone\\ROCEPHIN 1 GM in Sodium Chloride 0.9% 100 ML IVPB SCH (20:35)
[2020-12-21] MEDS: Mirtazapine 30 MG TAB PO SCH (20:36)
[2020-12-21] MEDS: Nicotine 14 MG PATCH TD SCH (21:56)
[2020-12-22] MEDS: traMADol HCl 50 MG TAB PO PRN ×2 (02:28→08:28)
[2020-12-22] MEDS: Tamsulosin HCl 0.4 MG CAP PO SCH (08:27)
[2020-12-22] MEDS: Multivit, Therapeutic 1 TAB PO SCH (08:27)
[2020-12-22] MEDS: Amiodarone 200 MG TAB PO SCH (08:27)
[2020-12-22] MEDS: Trospium 20 MG TAB PO SCH ×2 (08:28→20:14)
[2020-12-22] MEDS: Iron Polysaccharides Complex 150 MG CAP PO SCH (08:28)
[2020-12-22] MEDS: Famotidine 20 MG TAB PO SCH ×2 (08:28→20:13)
[2020-12-22] MEDS: Morphine 4 MG/ML VIAL SLOW IVP PRN ×2 (09:24→18:07)
[2020-12-22] MEDS: Mometasone 100 MCG/Formoterol 5 MCG 120 PUFF INHALER INH SCH (09:34)
[2020-12-22] MEDS: Mirtazapine 30 MG TAB PO SCH (20:14)
[2020-12-22] MEDS ORDERED: Melatonin 3 MG TAB PO PRN (20:54)
[2020-12-22] MEDS: Nicotine 14 MG PATCH TD SCH (22:15)
[2020-12-23] MEDS: Mometasone 100 MCG/Formoterol 5 MCG 120 PUFF INHALER INH SCH ×2 (07:16→08:20)
[2020-12-23] MEDS: Iron Polysaccharides Complex 150 MG CAP PO SCH (08:03)
[2020-12-23] MEDS: Multivit, Therapeutic 1 TAB PO SCH (08:03)
[2020-12-23] MEDS: Tamsulosin HCl 0.4 MG CAP PO SCH (08:03)
[2020-12-23] MEDS: Famotidine 20 MG TAB PO SCH (08:03)
[2020-12-23] MEDS: Trospium 20 MG TAB PO SCH (08:03)
[2020-12-23] MEDS: Morphine 4 MG/ML VIAL SLOW IVP PRN ×2 (08:03→13:50)
[2020-12-23] MEDS: Amiodarone 200 MG TAB PO SCH (08:03)
[2020-12-23 08:07] VITALS: TEMP 97.8
[2020-12-23 12:31] VITALS: BP 102/59
== END 2020-12-23 18:05 | disposition hospice, home (50) | DRG 687 ==
LOC: ERS 10:54 → ONC 17:32
PROVIDERS: ADMIT Internal Medicine; ATTEND Internal Medicine
PROC: 0T9B70Z Drainage of Bladder with Drainage Device, Via Natural or Artificial Opening (ICD-10-PCS; principal; 2020-12-18)
PROC: 3E1K78Z Irrigation of Genitourinary Tract using Irrigating Substance, Via Natural or Artificial Opening (ICD-10-PCS; 2020-12-18)
DX: C67.9 Malignant neoplasm of bladder, unspecified (principal); C79.89 Secondary malignant neoplasm of other specified sites; C77.5 Secondary and unspecified malignant neoplasm of intrapelvic lymph nodes; I50.22 Chronic systolic (congestive) heart failure; R64 Cachexia; Z68.1 Body mass index [BMI] 19.9 or less, adult; Z51.5 Encounter for palliative care; F32.A Depression, unspecified; J43.9 Emphysema, unspecified; I25.10 Atherosclerotic heart disease of native coronary artery without angina pectoris; F41.9 Anxiety disorder, unspecified; F17.210 Nicotine dependence, cigarettes, uncomplicated; F32.9 Major depressive disorder, single episode, unspecified; I11.0 Hypertensive heart disease with heart failure; I25.5 Ischemic cardiomyopathy; Z87.440 Personal history of urinary (tract) infections; Z99.81 Dependence on supplemental oxygen; I25.2 Old myocardial infarction; Z95.810 Presence of automatic (implantable) cardiac defibrillator; Z95.1 Presence of aortocoronary bypass graft; Z79.899 Other long term (current) drug therapy; Z79.01 Long term (current) use of anticoagulants
CPT/HCPCS: 36415; 74177; 80048; 80053; 81003; 81015; 83880; 85025; 85610; 85730; 86850; 86900; 86901; 93005; 94640; J0696; J2270; J3490; J7050; J7620; Q9967; U0002